=== PATIENT | female | born 1975 | race Caucasian/White ===

== ENCOUNTER → 2019-09-03 10:46 | Outpatient (BNVA) | payer MEDICAID, SELFPAY | PROVIDERS: PCP Nurse Practitioner Family; Visit Provider Nurse Practitioner Family | DX: R06.02 Shortness of breath (principal); I73.00 Raynaud's syndrome without gangrene; R39.9 Unspecified symptoms and signs involving the genitourinary system; F17.200 Nicotine dependence, unspecified, uncomplicated; R09.89 Other specified symptoms and signs involving the circulatory and respiratory systems; L98.491 Non-pressure chronic ulcer of skin of other sites limited to breakdown of skin; G62.9 Polyneuropathy, unspecified; I45.10 Unspecified right bundle-branch block | CPT/HCPCS: 71046; 80053; 80061; 81003; 84443; 85025; 85651; 86140 ==

== ENCOUNTER 2019-09-08 09:13 | Outpatient (CLI) | payer MEDICAID, SELFPAY ==
--- NOTE | 2019-09-08 09:30 | USCV_ITS ---
Sharon Martinez Age: 44 Gender: F : 1975 Exam Date: 09/08/2019 09:42 Ordering Phys: Gladis Arce IRRIGATION EQUIPMENT INSTALLER-C Technologist: Conchita Soto Exam Location: [facility] – [place], [place] Indication: SWELLING OF BOTH HANDS HISTORY: Upper extremity swelling. PROCEDURES: Venous duplex imaging was performed in bilateral upper extremities. The following venous structures were evaluated: internal jugular vein, subclavian vein, axillary vein, and brachial veins. In addition, the basilic vein, cephalic vein, radial vein, and ulnar vein. Serial compression, augmentation maneuvers, and spectral Doppler flow evaluation were performed. FINDINGS: Normal 2-D, color Doppler and phasicity noted in the bilateral upper extremity venous system extending from the internal jugular veins through the main forearms. No thrombosis or occlusion noted. CONCLUSIONS No evidence of thrombus of the bilateral upper extremity veins. Fausto Young MD (Electronically Signed) Final Date: 08 September 2019 13:48 S
== END 2019-09-08 09:14 | disposition home or self-care (01) ==
LOC: RAD 09:15
PROVIDERS: PCP Nurse Practitioner Family; Visit Provider Nurse Practitioner Family
DX: M79.89 Other specified soft tissue disorders (principal)
CPT/HCPCS: 93970

== ENCOUNTER 2019-09-13 13:03 | Outpatient (RCR) | payer MEDICAID, SELFPAY | END 2019-10-09 23:59 | disposition home or self-care (01) | LOC: WOUND 13:03 | PROVIDERS: PCP Nurse Practitioner Family; Visit Provider Nurse Practitioner Family | DX: Z09 Encounter for follow-up examination after completed treatment for conditions other than malignant neoplasm (principal) | CPT/HCPCS: 99204; 99214; G0463 ==

== ENCOUNTER 2019-09-15 06:55 | Outpatient (CLI) | payer MEDICAID, SELFPAY ==
--- NOTE | 2019-09-15 07:15 | USCV_ITS ---
Saraidena Sharon Age: 44 Gender: F : 1975 Exam Date: 09/15/2019 07:08 Ordering Phys: Gladis Arce PATROL POLICE SERGEANT-Samuel Technologist: Beti Grant [place] [facility] [place]ication: DECREASED CIRCULATION Risk Factors: Previous Vascular Surgery: Right BP: 141.00 / 98.00 Left BP: 134.00 / 89.00 RIGHT LEFT PSV PSV (cm/s) (cm/s) Waveform Waveform Triphasic 90.6 Subclavian Proximal 106.9 Triphasic Triphasic 58.5 Subclavian Distal 49.7 Triphasic Triphasic 78.0 Axillary 73.1 Triphasic Triphasic 73.5 Brachial Proximal 91.6 Triphasic Triphasic 85.5 Brachial Mid 126.0 Triphasic Triphasic 82.5 Brachial at AC 130.4 Triphasic Triphasic 63.0 Radial Proximal 75.0 Triphasic Biphasic 76.7 Radial Mid 64.5 Triphasic Biphasic 62.9 Radial at Wrist 67.5 Biphasic Biphasic 34.0 Ulnar Proximal 73.5 Biphasic Biphasic 45.3 Ulnar Mid 60.0 Biphasic Biphasic 51.6 Ulnar at Wrist 60.0 Biphasic FINDINGS Patent upper extremity arteries bilaterally Normal/near normal Doppler waveforms bilaterally Normal Doppler flow velocities CONCLUSIONS No significant arterial obstruction, based on the above findings Dr Kia Maldonado MD [facility] (Electronically Signed) Final Date: 15 September 2019 15:22 S
== END 2019-09-15 06:56 | disposition home or self-care (01) ==
LOC: RAD 06:59
PROVIDERS: PCP Nurse Practitioner Family; Visit Provider Nurse Practitioner Family
DX: M79.89 Other specified soft tissue disorders (principal)
CPT/HCPCS: 93930

== ENCOUNTER 2019-10-14 07:09 | Outpatient (CLI) | payer MEDICAID, SELFPAY ==
[2019-10-14 07:18] VITALS: BMI 24.3
--- NOTE | 2019-10-14 07:29 | ECG_ITS ---
NAME OF STUDY: LEXISCAN SESTAMIBI STRESS TEST INDICATION: Atypical Chest Pain; Shortness of Breath PROCEDURE: At the baseline, the EKG revealed normal sinus rhythm with some nonspecific T wave changes.. The baseline blood pressure was 133/96 mm Hg with a heart rate of 89 beats/min. Lexiscan was infused over a period of 20 seconds. A total of 0.4 milligrams of Lexiscan was infused. The stress phase was continued for a total of 5 minutes. Heart rate at the end of the stress phase was 90 with a blood pressure 123/95. The EKG at the peak infusion revealed no significant changes. Sestamibi was injected 20 seconds after the Lexiscan infusion. Blood pressure at the end of the recovery phase was 137/99 with a heart rate of 88 per minute. CONCLUSION: 1. No significant EKG changes with the LexiScan infusion 2. No LexiScan induced chest pain or cardiac arrhythmia 3. Normal blood pressure and heart rate response 4. Sestamibi/sestamibi perfusion scan pending; see separate report. Electronically Signed On 10-15-2019 15:52:16 ASSOCIATE ACCOUNTANT by Kia Maldonado M.D. [email or web address]
--- NOTE | 2019-10-14 07:29 | NMCV_ITS ---
NM marilin perf SPECT r/s* [id number] Sharon Martinez Age: 44 Gender: F : 1975 Exam Date: 10/14/2019 08:09 Ordering Phys: Kia Maldonado MD ([email or web address]) Technologist: MARYELLEN Cardenas Exam Location: [facility] Indications: Chest pain STRESS TEST Please see separate stress test report in [facility] for full findings IMAGE PROTOCOL Rest/Stress 1 Lexiscan Day Radiopharmaceutical Dose (mCi) Administration Site Administered by Rest: Tc-99m 10.8 IV MARYELLEN Cardenas Sestamibi Stress:Tc-99m 32.7 IV MARYELLEN Cardenas Sestamidarvin Rest: 14-Oct-2019 60 Discovery 630 Stress: 14-Oct-2019 45 Discovery 630 0.4mg Lexiscan. Images obtained in supine and prone position. SPECT RESULTS Technical Quality: Good Raw Data Analysis: Normal Image Corrections: No attenuation or motion correction applied Summed Stress Score: 0 Summed Rest Score: 0 Summed Difference Score: 0 PERFUSION FINDINGS Uniform myocardial tracer uptake. No significant perfusion normalities. FUNCTIONAL RESULTS (calculated via Gated SPECT) Stress Image LV EF (%): 68 Stress EDV (mL):38 TID: 0.96 Stress ESV (mL):12 FUNCTIONAL FINDINGS: Segmental wall motion analysis revealing no gross wall motion normalities IMPRESSIONS 1. Unremarkable myocardial perfusion imaging. 2. LV wall motion analysis revealing no gross wall motion normalities. 3. Normal LV ejection fraction of 68%. 4. Normal LV volume No significant coronary ischemia, based on the above findings Dr Kia Maldonado MD [facility] (Electronically Signed) Final Date: 14 October 2019 13:58 S
[2019-10-14] MEDS: regadenoson 0.4 Mg/5 ml Syringe IVP (09:07)
--- NOTE | 2019-10-14 09:08 | SUR.PREOP ---
Patient reports no pain or discomfort prior to the start of the procedure.
[2019-10-14 09:17] VITALS: BP 130/89; PULSE 85
== END 2019-10-14 07:10 | disposition home or self-care (01) ==
PROVIDERS: PCP Nurse Practitioner Family; Visit Provider Internal Medicine Cardiovascular Disease
DX: R07.89 Other chest pain (principal); R06.02 Shortness of breath
CPT/HCPCS: 78452; 93017; A9500; J2785

== ENCOUNTER 2019-10-15 15:20 | Outpatient (RCR) | payer MEDICAID, SELFPAY ==
--- NOTE | 2019-10-15 | USCV_ITS ---
Sharon Martinez Age: 44 Gender: F : 1975 Exam Date: 10/15/2019 15:35 Ordering Phys: Kia Maldonado MD ([email or web address]) Technologist: Pedro Pablo Jimenez Exam Location: [facility] – [place] Indication: SOB BP: 134 / 85 HR: 105 Rhythm: Sinus Technical Quality: Technically difficult study MEASUREMENTS (Male / Female) Normal Values 2D ECHO LVOT Diameter 1.6 cm LV Ejection Fraction MOD 2C 56.7 % LV Ejection Fraction 2C AL 58.8 % LA Diameter 3.2 cm LA Width 3.4 cm LA Height 5.3 cm RA Width 4.6 cm RA Height 6.0 cm Aorta at Sinotubular Diameter 2.8 cm M-MODE LV Diastolic Diameter MM 3.1 cm 4.2 - 5.9 / 3.9 - 5.3 cm LV Systolic Diameter MM 1.7 cm LV Ejection Fraction MM Teich 76.1 % IVS Diastolic Thickness MM 2.3 cm 0.6 - 1.0 / 0.6 - 0.9 cm IVS Systolic Thickness MM 2.5 cm LVPW Diastolic Thickness MM 1.6 cm 0.6 - 1.0 / 0.6 - 0.9 cm LVPW Systolic Thickness MM 1.9 cm RV Diastolic Diameter MM 2.4 cm Aortic Annulus Diameter 3.1 cm LA Ao Ratio MM 1.0 MV E Point Septal Separation 0.7 cm DOPPLER AV Peak Velocity 119.0 cm/s LVOT Peak Velocity 100.0 cm/s AV Area Cont Eq vti 1.8 cm squared AV Area Cont Eq pk 1.8 cm squared MV Area PHT 5.0 cm squared Mitral E to A Ratio 0.5 MV E' Velocity 50.0 cm/s Mitral E to LV E' Septal Ratio 9.3 TR Peak Velocity 373.0 cm/s TR Peak Gradient 55.7 mmHg TV Peak E Velocity 117.0 cm/s Right Atrial Pressure 3.0 mmHg Pulmonary Artery Systolic Pressu 58.7 mmHg PV Peak Velocity 79.0 cm/s FINDINGS Left Ventricle Normal left ventricular size and systolic function, EF 55 %. Moderate concentric left ankle hypertrophy. No gross wall motion normalities noted.Grade I/IV diastolic dysfunction (abnormal relaxation filling pattern), normal to mildly elevated filling pressures. Right Ventricle Mildly increased right ventricular size. Mildly decreased right ventricular systolic function. Right Atrium Mildly increased right atrial size. Left Atrium The left atrium is normal in size. Mitral Valve Structurally normal mitral valve without significant stenosis or prolapse. There is no mitral regurgitation. Aortic Valve Mild aortic valve regurgitation. Tricuspid Valve Mild tricuspid valve regurgitation. Pulmonic Valve Trace to mild pulmonary valve regurgitation. Pericardium Normal pericardium without effusion. Aorta Normal aortic annulus size. CONCLUSIONS Normal left ventricular size and systolic function, EF 55 %. Moderate concentric left ankle hypertrophy. No gross wall motion normalities noted.Grade I/IV diastolic dysfunction (abnormal relaxation filling pattern), normal to mildly elevated filling pressures. Mild aortic valve regurgitation. Mild tricuspid valve regurgitation. Trace to mild pulmonary valve regurgitation. Estimated pulmonary artery peak systolic pressure of 59 mmHg There is no pericardial effusion. There are no intracardiac masses. There are no prior echocardiogram studies to compare. Dr Kia Maldonado MD [facility] (Electronically Signed) Final Date: 18 October 2019 22:56 S
== END 2019-11-09 23:59 | disposition home or self-care (01) ==
LOC: RAD 15:20
PROVIDERS: PCP Nurse Practitioner Family; Visit Provider Internal Medicine Cardiovascular Disease
DX: I08.2 Rheumatic disorders of both aortic and tricuspid valves (principal)
CPT/HCPCS: 93306

== ENCOUNTER → 2019-12-17 09:33 | Outpatient (BNVA) | payer MEDICAID, SELFPAY | PROVIDERS: PCP Nurse Practitioner Family; Visit Provider Nurse Practitioner | DX: I73.00 Raynaud's syndrome without gangrene (principal); I10 Essential (primary) hypertension; F41.1 Generalized anxiety disorder; M20.091 Other deformity of right finger(s); R22.32 Localized swelling, mass and lump, left upper limb | CPT/HCPCS: 73130; 82607; 85025 ==

== ENCOUNTER 2020-05-11 18:42 | Emergency (ER) | payer MEDICAID, SELFPAY ==
[2020-05-11 19:08] VITALS: BP 165/95; PULSE 101; RESP 18; TEMP 36.3; O2SAT 99; BMI 21.6
[2020-05-11 19:20] LABS: Basophils % 0.6 %; Eosinophils # 0.2 10^3/uL (0.0-0.8); Eosinophils % 3.6 %; Hematocrit 46.4 % (37.0-47.0); Hemoglobin 15.1 g/dL (11.5-15.3); Lymphocytes # 1.7 10^3/uL (0.8-4.8); Lymphocytes % 25.5 %; Mean Corpuscular HGB Conc 32.5 g/dL (30.0-36.0); Mean Corpuscular Hemoglobin 30.8 pg (28.0-34.0); Mean Corpuscular Volume 94.7 fL (81-99); Mean Platelet Volume 11.9 fL (7.4-10.4); Monocytes # 0.4 10^3/uL (0.2-0.9); Monocytes % 6.6 %; Neutrophils # 4.11 10^3/uL (1.8-7.7); Neutrophils % 63.5 %; Nucleated Red Blood Cells % 0 %; Platelet Count 119 10^3/cmm (130-400); Red Cell Distribution Width 13.3 % (12.1-15.1); White Blood Count 6.5 10^3/uL (4.0-10.0)
--- NOTE | 2020-05-11 19:22 | ED_ITS ---
HPI - Abdominal Pain General: Chief Complaint: Abdominal Pain Stated Complaint: abd pain Time Seen by Provider: 05/11/20 19:14 Source: patient Mode of arrival: ambulatory Limitations: no limitations History of Present Illness: HPI narrative: 45-year-old female who states she been having lower abdominal pain for last 4 days. States it is worsened and gradually went to her right lower quadrant. States pain is currently 6 out of 10. She had some slight nausea. Denies any worsening improving factors. Denies any vomiting. Denies any fevers. Associated Symptoms: Denies chills, dysuria and fever(s) Review of Systems Const: Denies: fever(s), chills, body aches or change in appetite Eyes: Denies: blurry vision or eye discomfort ENMT: Denies: throat pain or dental pain Card: Denies: chest pain Resp: Denies: dyspnea GI: Reports: abdominal pain : Denies: dysuria Musc: Denies: neck pain or back pain Skin/Breast: Denies: rash Neuro: Denies: headache(s) Psych: Denies: depression Peng/Lymph: Denies: easy bruising All/Imm: Denies: urticaria PFSH ED PFSH: Medical History Activity of daily living alteration Atypical chest pain TERRELL (dyspnea on exertion) Essential hypertension Incomplete right bundle branch block Peripheral neuropathy Pulmonary hypertension Raynauds disease Smoker Smoking addiction Ulceration localized to fingertip Surgical History Hx of tubal ligation Family History Other Cancer Social History Smoking and tobacco status: current every day smoker cigarettes Packs smoked per day: 1 Second hand smoke exposure: Yes Smoking risk assessment/counseling performed?: Yes Alcohol intake: former Desire information about alcohol rehabilitation?: No Counseling given: No Desire information about substance/drug rehabilitation?: No Counseling given: No Adopted: No Caregiver/support person: No Lives independently: Yes Household members: none Marital status: Number of children: 2 service: No Current occupational status: unemployed History of recent travel: No Current gender identity: Female Female Reproductive History: Para: 2 Physical Exam Const: COMMON NORMALS: no acute distress, patient oriented x3 and healthy appearing HENMT: COMMON NORMALS: normocephalic and atraumatic HEAD & SCALP: normocephalic and atraumatic Eye: COMMON NORMALS: Equal, round and reactive pupils present and EOMs intact bilaterally PUPIL: Yes Equal, round and reactive pupils present Neck/C-Spine: COMMON NORMALS: full ROM and supple Chest: COMMONS NORMALS: normal inspection of the chest and normal palpation of entire chest wall Resp: COMMON NORMALS: normal respiratory effort, No retractions, No use of accessory muscles and clear to auscultation bilaterally AUSCULTATION: clear to auscultation bilaterally Cardio: COMMON NORMALS: regular rate, regular rhythm and No murmurs present (Cardio) RATE: regular rate RHYTHM: regular rhythm GI: COMMON NORMALS: Normal to inspection, nondistended, normoactive bowel sounds present, Soft to palpation, non-tender and no masses PALPATION: Yes Soft to palpation Extremity: COMMON NORMALS: normal to inspection and full ROM Neuro: COMMON NORMALS: patient oriented x3, moves all extremities and no focal motor deficits Psych: COMMON NORMALS: mental status grossly normal, Normal thought process present and cooperative THOUGHT PROCESS: Normal thought process present Skin: COMMON NORMALS: no rashes or lesions noted and no wounds GENERAL SKIN EXAM: no rashes or lesions noted Course Vital Signs: Vital signs: Vital Signs Temperature 97.3 F L 05/11/20 19:08 Pulse Rate 101 H 05/11/20 19:08 Respiratory Rate 18 05/11/20 19:38 Blood Pressure 165/95 05/11/20 19:08 Pulse Oximetry 99 05/11/20 19:08 MDM - Abdominal Pain MDM Narrative: Medical decision making narrative: Patient presents here with lower abdominal pain. CT showed a tubular structure that is likely hydrosalpinx. Patient pain is resolved and exam here is benign. Patient does have trichomonas in her urine. States she does have slight discharge. She has no signs of PID. We will give her Rocephin along with azithromycin and prescribe her Flagyl. She is to return if worsening. She understands agrees to plan. Lab Data: Labs: Lab Results 05/11/20 05/11/20 05/11/20 Range/Units 19:05 19:05 19:05 WBC 6.5 (4.0-10.0) 10^3/ uL RBC 4.90 (4.1-5.3) 10^6/u L Hgb 15.1 (11.5-15.3) g/dL Hct 46.4 (37.0-47.0) % MCV 94.7 (81-99) fL MCH 30.8 (28.0-34.0) pg MCHC 32.5 (30.0-36.0) g/dL RDW 13.3 (12.1-15.1) % Plt Count 119 L (130-400) 10^3/c mm MPV 11.9 H (7.4-10.4) fL Neut % (Auto) 63.5 % Lymph % (Auto) 25.5 % [place] % (Auto) 6.6 % Eos % (Auto) 3.6 % Baso % (Auto) 0.6 % Neut # (Auto) 4.11 (1.8-7.7) 10^3/u L Lymph # (Auto) 1.7 (0.8-4.8) 10^3/u L [place] # (Auto) 0.4 (0.2-0.9) 10^3/u L Eos # (Auto) 0.2 (0.0-0.8) 10^3/u L Baso # (Auto) 0.0 (0.0-0.1) 10^3/u L Nucleated RBC % (a uto) 0 % Nucleated RBCs # 0.0 /100WBC Sodium 137 (136-145) mmol/L Potassium 4.4 (3.5-5.1) mmol/L Chloride 103 (98-107) mmol/L Carbon Dioxide 25 (22-29) mmol/L Anion Gap 13.4 (5-19) BUN 13 (6-20) mg/dL Creatinine 0.9 (0.5-0.9) mg/dL GFR Calculation 67.1 L (90-130) mL/min Glucose 89 (65-115) mg/dL Calculated Osmolal ity 284 L (285-295) mOsm/k g Calcium 10.0 (8.5-10.5) mg/dL Total Bilirubin 0.3 (0.15-1.2) mg/dL AST 25 (0-32) U/L ALT 24 (0-33) U/L Alkaline Phosphata se 133 H (35-105) IU/L Total Protein 7.1 (6.6-8.7) g/dL Albumin 3.8 (3.5-5.2) g/dL Globulin 3.3 (1.3-4.6) g/dL Lipase 22 (13-60) U/L HCG, Qual Negative (Negative) Urine Color (Yellow) Urine Appearance (CLEAR) Urine pH (5-7) Ur Specific Gravit y (1.005-1.030) Urine Protein (Negative) Urine Glucose (UA) (Normal) Urine Ketones (Negative) Urine Blood (Negative) Urine Nitrate (Negative) Urine Bilirubin (Negative) Urine Urobilinogen (Negative) mg/dL Ur Leukocyte Reshma ase (Negative) Urine RBC (0-2) /hpf Urine WBC (0-5) /hpf Ur Squamous Epith Cells (0-5) /hpf Amorphous Sediment Urine Bacteria (NONE) /hpf Urine Trichomonas /hpf 05/11/20 Range/Units 20:38 WBC (4.0-10.0) 10^3/ uL RBC (4.1-5.3) 10^6/u L Hgb (11.5-15.3) g/dL Hct (37.0-47.0) % MCV (81-99) fL MCH (28.0-34.0) pg MCHC (30.0-36.0) g/dL RDW (12.1-15.1) % Plt Count (130-400) 10^3/c mm MPV (7.4-10.4) fL Neut % (Auto) % Lymph % (Auto) % [place] % (Auto) % Eos % (Auto) % Baso % (Auto) % Neut # (Auto) (1.8-7.7) 10^3/u L Lymph # (Auto) (0.8-4.8) 10^3/u L [place] # (Auto) (0.2-0.9) 10^3/u L Eos # (Auto) (0.0-0.8) 10^3/u L Baso # (Auto) (0.0-0.1) 10^3/u L Nucleated RBC % (a uto) % Nucleated RBCs # /100WBC Sodium (136-145) mmol/L Potassium (3.5-5.1) mmol/L Chloride (98-107) mmol/L Carbon Dioxide (22-29) mmol/L Anion Gap (5-19) BUN (6-20) mg/dL Creatinine (0.5-0.9) mg/dL GFR Calculation (90-130) mL/min Glucose (65-115) mg/dL Calculated Osmolal ity (285-295) mOsm/k g Calcium (8.5-10.5) mg/dL Total Bilirubin (0.15-1.2) mg/dL AST (0-32) U/L ALT (0-33) U/L Alkaline Phosphata se (35-105) IU/L Total Protein (6.6-8.7) g/dL Albumin (3.5-5.2) g/dL Globulin (1.3-4.6) g/dL Lipase (13-60) U/L HCG, Qual (Negative) Urine Color Yellow (Yellow) Urine Appearance Hazy A (CLEAR) Urine pH 5 (5-7) Ur Specific Gravit y 1.015 (1.005-1.030) Urine Protein Neg (Negative) Urine Glucose (UA) Norm (Normal) Urine Ketones Negative (Negative) Urine Blood 2+ H (Negative) Urine Nitrate Negative (Negative) Urine Bilirubin Neg (Negative) Urine Urobilinogen Norm (Negative) mg/dL Ur Leukocyte Reshma ase Trace H (Negative) Urine RBC 0-4 H (0-2) /hpf Urine WBC 5-10 H (0-5) /hpf Ur Squamous Epith Cells 25-40 H (0-5) /hpf Amorphous Sediment Not Reportable Urine Bacteria 1+ H (NONE) /hpf Urine Trichomonas 3+ H /hpf Imaging Data ^: CT Abd/Pel: Radiologist's impression: [address] [address] [address] Scan Report Signed Patient: Sharon Martinez Unit #: [id number] : 1975 Age/Sex: 45 / F ADM Date: 05/11/20 Loc: ER Room/Bed: Attending Dr: Ordering Provider/Ordering MD: Adia Fuentes MD Date of Service: 05/11/20 Procedure(s): CT abdomen pelvis w con* [id number] Accession Number(s): [id number] Report Number: [id number] PROCEDURE INFORMATION: Exam: CT Abdomen And Pelvis With Contrast Exam date and time: 05/11/2020 7:43 PM Age: 45 years old Clinical indication: Abdominal pain; Acute; Prior surgery; Surgery date: 6+ months; Surgery type: Choley tubal; Additional info: Abd pain TECHNIQUE: Imaging protocol: Computed tomography of the abdomen and pelvis with intravenous contrast. Radiation optimization: All CT scans at this facility use at least one of these dose optimization techniques: automated exposure control; mA and/or kV adjustment per patient size (includes targeted exams where dose is matched to clinical indication); or iterative reconstruction. Contrast material: OMNI; Contrast volume: 95 ml; Contrast route: INTRAVENOUS (IV); COMPARISON: No relevant prior studies available. RADIATION DOSE METRICS: Total DLP (mGy-cm): 404.14 FINDINGS: Lungs: The lung bases are clear. Heart: Asymmetric pericardial effusion only collects anteriorly measuring up to 13 mm. The heart size appears normal. Liver: Normal. No mass. Gallbladder and bile ducts: The gallbladder is surgically absent. Pancreas: Normal. No ductal dilation. Spleen: Normal. No splenomegaly. Adrenals: Normal. No mass. Kidneys and ureters: Incidental 5 mm right renal cyst. Follow-up is not recommended. Stomach and bowel: Slightly increased fluid within nondilated small bowel measuring up to 2.7 cm. The colon is unremarkable. Appendix: The appendix is well seen and is normal. The impression. Normal appendix. Intraperitoneal space: There is no free fluid. Vasculature: Unremarkable. No abdominal aortic aneurysm. Lymph nodes: Unremarkable. No enlarged lymph nodes. Urinary bladder: Unremarkable as visualized. Reproductive: There is a 1.2 cm curved, tubular structure with wall enhancement adjacent to the right ovary. This might represent a dilated fallopian tube. The ovaries are not enlarged. The uterus is unremarkable. Bones/joints: Unremarkable. No acute fracture. Soft tissues: Unremarkable. CT/CT abdomen pelvis w con* [id number] IMPRESSION: 1. Right periovarian tubular structure. This is probably hydrosalpinx. Differential would be an inflamed Meckel's diverticulum 2. Subtle small bowel changes suggesting enteritis. 3. Pericardial effusion COMMENTS: Consistent with the [employer]'s Incidental Findings Committee white paper (J Am Cristobal Radiol 2018): Any incidental renal lesion less than 1.0 cm or classified as too small to characterize, or any incidental cystic renal lesion characterized as simple-appearing, is likely benign. No follow-up imaging is recommended for these lesions per consensus recommendations based on imaging criteria. Discharge Plan Discharge Patient Disposition: Home Clinical Impression: Trichimoniasis Abdominal pain Qualifiers: Abdominal location: right lower quadrant Qualified Code(s): R10.31 - Right lower quadrant pain Condition: Stable Prescriptions: [place] 5-325 mg tablet 1 tab PO Q6H PRN (Reason: pain) Qty: 14 RF: 0 ondansetron 4 mg tablet,disintegrating 4 mg PO Q6H PRN (Reason: nausea and vomiting) Qty: 14 RF: 0 Flagyl 500 mg tablet 500 mg PO Q8H 7 Days Qty: 21 RF: 0 No Action isosorbide mononitrate 30 mg tablet extended release 24 hr 30 mg PO .2 times day Qty: 60 RF: 0 zonisamide 100 mg capsule 100 mg PO Q12H Qty: 60 RF: 2 fluoxetine [Prozac] 20 mg capsule 20 mg PO BID Qty: 60 RF: 2 mupirocin 2 % ointment 1 applic TOPICAL TID Qty: 22 RF: 2 lidocaine-prilocaine 2.5-2.5 % cream 0.5 gm topical .every 12 hours Qty: 30 RF: 1 nifedipine [Procardia XL] 90 mg tablet extended release 24hr 90 mg PO DAILY Qty: 30 RF: 2 gabapentin 300 mg capsule 300 mg PO TID RF: 0 Discharge Orders: Discharge Order (Routine); Ordered 05/11/20 Ordered By: Adia Fuentes Referrals: [facility] [Other] Gladis Arce FNP-C [Primary Care Provider] - Prema Mena MD [Physician] - 1-3 days Discharge Diet: Advance as tolerated Discharge Activity: Resume usual activity Patient Instructions: Trichomoniasis (ED), Abdominal Pain (ED) Coding Level of Care Code ED Felling Machine Operator for Chg Fwd Exam Comprehensive
[2020-05-11 19:28] LABS: Alanine Aminotransferase 24 U/L (0-33); Albumin Level 3.8 g/dL (3.5-5.2); Alkaline Phosphatase 133 IU/L (35-105); Anion Gap 13.4 (5-19); Aspartate Amino Transferase 25 U/L (0-32); Blood Urea Nitrogen 13 mg/dL (6-20); Carbon Dioxide 25 mmol/L (22-29); Chloride 103 mmol/L (98-107); Globulin 3.3 g/dL (1.3-4.6); Glomerular Filtration Rate 67.1 mL/min (90-130); Glucose 89 mg/dL (65-115); Lipase 22 U/L (13-60); Osmolality Calculated 284 mOsm/kg (285-295); Potassium 4.4 mmol/L (3.5-5.1); Sodium 137 mmol/L (136-145); Total Bilirubin 0.3 mg/dL (0.15-1.2); Total Protein 7.1 g/dL (6.6-8.7)
[2020-05-11 19:30] LABS: HCG, Serum Qual Negative (Negative)
[2020-05-11] MEDS: sodium chloride 0.9% 1,000 ML 999 ML IV (19:36)
[2020-05-11 19:38] VITALS: RESP 18
[2020-05-11] MEDS: morphine 4 mg/mL SDV 1 mL IVP (19:38)
[2020-05-11] MEDS: ondansetron 2 mg/ML SDV 2 mL 4 MG IVP (19:38)
[2020-05-11] MEDS: iohexol 300 mg/mL 100 mL Btl IV (19:51)
--- NOTE | 2020-05-11 20:26 | US_ITS ---
WS: [id number] ULTRASOUND PELVIS TECHNIQUE: Transvaginal. CLINICAL INFORMATION: rlq pain : No. COMPARISON: None. FINDINGS: Uterus Orientation: Anteverted. Size: 7.9 x 4.2 x 5.1 cm Masses: None. Cervix: Normal. Endometrium: Normal. Endometrium thickness: 5.7 mm. Adnexa: Difficult to visualize left ovary. Small right ovarian cyst measuring 1.4 x 0.7 cm Right ovary size: 2.1 x 1.4 x 2.3 cm. Left ovary size: 3.0 x 1.9 x 2.2 cm. Free fluid: None. Other findings: None. US/US transvaginal [id number] IMPRESSION: 1. Uterus is normal in appearance with normal endometrium measuring 5.7 mm. 2. Normal adnexa. 3. Small cyst right ovary measuring 1.4 x 0.7 cm 4. No free fluid in the cul-de-sac.
[2020-05-11 21:15] LABS: Add Urine Microscopic? YES; Bilirubin Urine Neg (Negative); Blood Urine 2+ (Negative); Glucose Urine UA Norm (Normal); Ketones Urine Negative (Negative); Leukocyte Esterase Urine Trace (Negative); Nitrate Urine Negative (Negative); Protein Urine Neg (Negative); Specific Gravity, Urine 1.015 (1.005-1.030); Urine Appearance Hazy (CLEAR); Urine Color Yellow (Yellow); Urobilinogen Urine Norm (Negative); pH Urine 5 (5-7)
[2020-05-11 21:18] LABS: Bacteria Urine 1+ /hpf; RBC Urine 0-4 /hpf (0-2); Squamous Epithelial Cell Urine 25-40 /hpf (0-5)
[2020-05-11 21:19] LABS: Add Urine Culture? No; Trichomonas Urine 3+ /hpf
[2020-05-11] MEDS: azithromycin 250 mg Tablet 1000 MG PO (21:37)
[2020-05-11] MEDS: cefTRIAXone 1,000 mg SDV 250 MG IM (21:38)
--- NOTE | 2020-05-12 08:55 | DCPLANNER ---
business change manager had message to schedule a follow up appointment for patient with [facility]. business change manager called [facility], spoke with [employer], gave clinic patients information. business change manager was told that patients information would be printed and reviewed. Clinic will call patient with appointment information.
--- NOTE | 2020-05-16 08:09 | DCPLANNER ---
Patient had a follow up appointment scheduled for 05.15.20 with [facility] - patient did attend appointment.
== END 2020-05-11 21:47 | disposition home or self-care (01) ==
PROVIDERS: Emergency Provider Emergency Medicine; PCP Nurse Practitioner Family
DX: A59.9 Trichomoniasis, unspecified (principal); R10.31 Right lower quadrant pain; I10 Essential (primary) hypertension; F17.210 Nicotine dependence, cigarettes, uncomplicated
CPT/HCPCS: 12345; 36415; 74177; 76830; 80053; 81001; 83690; 84703; 85025; 96361; 96372; 96374; 96375; 99282; 99283; J0696; J2270; J2405; J7030; Q0144; Q9967

== ENCOUNTER → 2020-05-15 15:53 | Outpatient (BNVA) | payer MEDICAID, SELFPAY | PROVIDERS: PCP Nurse Practitioner Family; Visit Provider Obstetrics & Gynecology | DX: Z12.4 Encounter for screening for malignant neoplasm of cervix (principal); R10.2 Pelvic and perineal pain | CPT/HCPCS: 88175 ==

== ENCOUNTER 2020-06-26 13:50 | Outpatient (CLI) | payer MEDICAID, SELFPAY ==
--- NOTE | 2020-06-26 13:00 | MM_ITS ---
WS: [id number] BILATERAL SCREENING DIGITAL MAMMOGRAM WITH CAD HISTORY: Breast Cancer Screening COMPARISON: None available. Bilateral CC and MLO views submitted. Computer aided detection analyzed. Breast composition: There are scattered areas of fibroglandular density. No suspicious masses, microc alcifications or architectural distortion. Benign calcifications in each breast. MM/[place] [id number] IMPRESSION: BI-RADS: 2-Benign FOLLOW UP: 1 Year Follow-up
== END 2020-06-26 13:51 | disposition home or self-care (01) ==
LOC: RADSHAW 13:53
PROVIDERS: PCP Nurse Practitioner; Visit Provider Obstetrics & Gynecology
DX: Z12.31 Encounter for screening mammogram for malignant neoplasm of breast (principal)
CPT/HCPCS: 77067

== ENCOUNTER 2020-09-05 08:27 | Outpatient (CLI) | payer MEDICAID, SELFPAY | END 2020-09-05 08:28 | disposition home or self-care (01) | LOC: WOUND 08:28 | PROVIDERS: PCP Nurse Practitioner; Visit Provider Thoracic Surgery (Cardiothoracic Vascular Surgery) | DX: L98.492 Non-pressure chronic ulcer of skin of other sites with fat layer exposed (principal); I73.00 Raynaud's syndrome without gangrene | CPT/HCPCS: 99212 ==

== ENCOUNTER → 2020-09-08 10:02 | Outpatient (BNVA) | payer MEDICAID, SELFPAY | PROVIDERS: PCP Nurse Practitioner; Visit Provider Internal Medicine | DX: I73.00 Raynaud's syndrome without gangrene (principal); I10 Essential (primary) hypertension; Z11.59 Encounter for screening for other viral diseases; Z11.1 Encounter for screening for respiratory tuberculosis; L98.499 Non-pressure chronic ulcer of skin of other sites with unspecified severity; L03.011 Cellulitis of right finger; F17.210 Nicotine dependence, cigarettes, uncomplicated | CPT/HCPCS: 99204 ==

== ENCOUNTER 2020-09-12 09:12 | Outpatient (CLI) | payer MEDICARE, MEDICAID, SELFPAY | END 2020-09-12 09:13 | disposition home or self-care (01) | LOC: WOUND 09:13 | PROVIDERS: PCP Nurse Practitioner; Visit Provider Thoracic Surgery (Cardiothoracic Vascular Surgery) | DX: L98.492 Non-pressure chronic ulcer of skin of other sites with fat layer exposed (principal) | CPT/HCPCS: 99214 ==

== ENCOUNTER 2020-09-15 13:20 | Outpatient (CLI) | payer MEDICARE, MEDICAID, SELFPAY ==
[2020-09-15 14:30] LABS: Add Urine Microscopic? NO
[2020-09-15 15:03] LABS: Alanine Aminotransferase 17 U/L (0-33); Alkaline Phosphatase 164 IU/L (35-105); Anion Gap 13.3 (5-19); Aspartate Amino Transferase 22 U/L (0-32); Blood Urea Nitrogen 28 mg/dL (6-20); Calcium 9.6 mg/dL (8.5-10.5); Carbon Dioxide 24 mmol/L (22-29); Chloride 98 mmol/L (98-107); Globulin 3.3 g/dL (1.3-4.6); Glomerular Filtration Rate 76.9 mL/min (90-130); Glucose 122 mg/dL (65-115); Osmolality Calculated 281 mOsm/kg (285-295); Potassium 3.3 mmol/L (3.5-5.1); Sodium 132 mmol/L (136-145); Total Bilirubin 0.3 mg/dL (0.15-1.2); Total Protein 7.3 g/dL (6.6-8.7)
[2020-09-15 15:17] LABS: Hepatitis B Core AB, Total Non-Reactive (Nonreactive); Hepatitis B Surface Antigen Non-Reactive (Nonreactive); Hepatitis C Virus Antibody Non-Reactive (Nonreactive)
[2020-09-15 15:40] LABS: Complement C3 125 mg/dL (90-180); Thyroid Stimulating Hormone 5.25 uIU/mL (0.27-4.20)
[2020-09-15 16:06] LABS: Bilirubin Urine Neg (Negative); Blood Urine Neg (Negative); Glucose Urine UA Norm (Normal); Ketones Urine Negative (Negative); Leukocyte Esterase Urine Negative (Negative); Nitrate Urine Negative (Negative); Protein Urine Neg (Negative); Urine Appearance Clear (CLEAR); Urine Color Yellow (Yellow); Urobilinogen Urine Norm (Negative); pH Urine 5 (5-7)
[2020-09-18 12:08] LABS: COMPLEMENT, TOTAL (CH50) >60 U/mL (31-60)
[2020-09-18 13:43] LABS: Quantiferon Mitogen 9.37 IU/mL; Quantiferon Nil 0.02 IU/mL; Quantiferon Plus TB1 <0.00 IU/mL; Quantiferon Plus TB2 <0.00 IU/mL; Quantiferon TB Gold NEGATIVE (NEGATIVE)
[2020-09-18 14:42] LABS: CENTROMERE B ANTIBODY <1.0 NEG AI (<1.0 NEG); COMPLEMENT COMPONENT C3C 140 mg/dL (83-193); COMPLEMENT COMPONENT C4C 24 mg/dL (15-57); JO-1 ANTIBODY <1.0 NEG AI (<1.0 NEG); RNP ANTIBODY <1.0 NEG AI (<1.0 NEG); SCL-70 ANTIBODY <1.0 NEG AI (<1.0 NEG); SJOGREN'S ANTIBODY (SS-A) <1.0 NEG AI (<1.0 NEG); SM ANTIBODY <1.0 NEG AI (<1.0 NEG); SS-B <1.0 NEG AI (<1.0 NEG)
[2020-09-19 15:43] LABS: THYROID PEROXIDASE ANTIBODIES 3 IU/mL (<9)
[2020-09-20 14:12] LABS: Cyclic Citrullinated Peptide <16 UNITS
[2020-09-20 15:13] LABS: ANA PATTERN Nuclear, Speckled; ANA SCREEN, IFA POSITIVE (NEGATIVE); Anti-Nuclear AB Pattern #2 Nuclear, Nucleolar
[2020-09-21 03:58] LABS: Cryoglobulins Qualitative None Detected (None Detected)
[2020-09-21 20:53] LABS: ANCA Interp P-ANCA POS (Negative)
[2020-09-21 22:22] LABS: DNA AB (DS) CRITHIDIA,IFA NEGATIVE (NEGATIVE)
== END 2020-09-15 13:21 | disposition home or self-care (01) ==
PROVIDERS: PCP Nurse Practitioner; Visit Provider Internal Medicine
DX: D86.9 Sarcoidosis, unspecified (principal); I73.00 Raynaud's syndrome without gangrene
CPT/HCPCS: 36415; 80053; 81003; 82595; 83516; 84443; 86140; 86160; 86431; 86480; 86704; 86803; 87340

== ENCOUNTER 2020-09-19 07:07 | Outpatient (CLI) | payer MEDICARE, MEDICAID, SELFPAY ==
--- NOTE | 2020-09-19 07:15 | USCV_ITS ---
Sharon Martinez Age: 45 Gender: F : 1975 Exam Date: 09/19/2020 07:03 Ordering Phys: Nicolette Bustos MD Technologist: Mario Mendez Exam Location: [facility] [place] Indication: POLY NEUROPATHY Findings Brachial radial index in the right side is 1.05 Brachial ulnar index on the right side was 1.06 Brachial radial index on the left side was 1.16 Brachial ulnar index on the left side was 1.13 Conclusions Normal brachial -wrist indices bilaterally, suggesting no significant arterial obstruction Dr Kia Maldonado MD [facility] (Electronically Signed) Final Date: 19 September 2020 17:51 S
== END 2020-09-19 07:08 | disposition home or self-care (01) ==
LOC: RAD 07:13
PROVIDERS: PCP Nurse Practitioner; Visit Provider Internal Medicine
DX: G62.9 Polyneuropathy, unspecified (principal); R52 Pain, unspecified; M79.89 Other specified soft tissue disorders
CPT/HCPCS: 93922

== ENCOUNTER 2020-09-19 08:46 | Outpatient (CLI) | payer MEDICARE, MEDICAID, SELFPAY | END 2020-09-19 08:47 | disposition home or self-care (01) | LOC: WOUND 08:47 | PROVIDERS: PCP Nurse Practitioner; Visit Provider Thoracic Surgery (Cardiothoracic Vascular Surgery) | DX: L98.492 Non-pressure chronic ulcer of skin of other sites with fat layer exposed (principal) | CPT/HCPCS: 11042 ==

== ENCOUNTER 2020-10-03 10:20 | Outpatient (CLI) | payer MEDICARE, MEDICAID, SELFPAY | END 2020-10-03 10:21 | disposition home or self-care (01) | PROVIDERS: PCP Nurse Practitioner; Visit Provider Thoracic Surgery (Cardiothoracic Vascular Surgery) | DX: L98.492 Non-pressure chronic ulcer of skin of other sites with fat layer exposed (principal) | CPT/HCPCS: 11042 ==

== ENCOUNTER → 2020-10-05 12:36 | Outpatient (BNVA) | payer MEDICARE, MEDICAID, SELFPAY | PROVIDERS: PCP Nurse Practitioner; Visit Provider Internal Medicine | DX: I73.00 Raynaud's syndrome without gangrene (principal); R76.8 Other specified abnormal immunological findings in serum; R79.89 Other specified abnormal findings of blood chemistry; I73.9 Peripheral vascular disease, unspecified; L98.499 Non-pressure chronic ulcer of skin of other sites with unspecified severity; I27.20 Pulmonary hypertension, unspecified; D69.6 Thrombocytopenia, unspecified; E87.6 Hypokalemia; F17.210 Nicotine dependence, cigarettes, uncomplicated | CPT/HCPCS: 83516; 99214 ==

== ENCOUNTER 2020-10-10 10:24 | Outpatient (CLI) | payer MEDICARE, MEDICAID, SELFPAY | END 2020-10-10 10:25 | disposition home or self-care (01) | LOC: WOUND 10:28 | PROVIDERS: PCP Nurse Practitioner; Visit Provider Thoracic Surgery (Cardiothoracic Vascular Surgery) | DX: I73.00 Raynaud's syndrome without gangrene (principal); L98.492 Non-pressure chronic ulcer of skin of other sites with fat layer exposed | CPT/HCPCS: 11042 ==

== ENCOUNTER → 2020-10-12 12:33 | Outpatient (BNVA) | payer MEDICARE, MEDICAID, SELFPAY | PROVIDERS: PCP Pediatrics; Visit Provider Internal Medicine | DX: I73.00 Raynaud's syndrome without gangrene (principal); I73.9 Peripheral vascular disease, unspecified; L98.499 Non-pressure chronic ulcer of skin of other sites with unspecified severity; Z79.899 Other long term (current) drug therapy; R76.8 Other specified abnormal immunological findings in serum; R06.09 Other forms of dyspnea; I27.20 Pulmonary hypertension, unspecified; R79.89 Other specified abnormal findings of blood chemistry; F17.210 Nicotine dependence, cigarettes, uncomplicated | CPT/HCPCS: 36415; 80053; 81003; 83516; 85025; 86140; 86160; 99214 ==

== ENCOUNTER 2020-10-16 15:21 | Outpatient (CLI) | payer MEDICARE, MEDICAID, SELFPAY ==
--- NOTE | 2020-10-16 15:30 | CT_ITS ---
WS: [id number] CT CHEST WITHOUT INTRAVENOUS CONTRAST HISTORY: R06.09 - Other forms of dyspnea TECHNIQUE: Contiguous 5 mm axial imaging performed on the thorax. Coronal and sagittal reformats are submitted. All CT scans at [facility] use at least one of these dose optimization techniq ues: automated exposure control; mA and/or kV adjustment per patient size (includes targeted exams wh ere dose is matched to clinical indication); or iterative reconstruction. CONTRAST: None DLP: 691.04 mGycm COMPARISON: None available. Lungs and central airway: Marked pulmonary hyperexpansion. Moderate to severe centrilobular emphysema . 5 mm noncalcified nodule RIGHT lower lobe, image 36 of series 3. Benign granuloma RIGHT upper lobe. Pleura: Normal. No pleural effusion. Heart and pericardium: Moderately enlarged heart. There is a moderate-sized pericardial effusion juvencio uring 18 mm. Mediastinum and astrid: Subcentimeter mediastinal and hilar lymph nodes. Vessels: Pulmonary artery is enlarged. Pulmonary artery is larger than the aorta. Chest wall and lower neck: No soft tissue masses. Upper abdomen: Atherosclerosis suprarenal aorta. No adrenal mass. Prior cholecystectomy. Osseous structures: Long curvature thoracic spine with scoliosis to the RIGHT. CT/CT chest wo con [id number] IMPRESSION: 1. Moderate centrilobular emphysema. 2. 5 mm noncalcified RIGHT lower lobe nodule. Recommend follow-up chest CT in 12 months. 3. Cardiomegaly with moderate sized pericardial effusion. Consider follow-up w ith cardiology. 4. Pulmonary hypertension.
== END 2020-10-16 15:22 | disposition home or self-care (01) ==
LOC: RADWPI 15:25
PROVIDERS: PCP Pediatrics; Visit Provider Internal Medicine
DX: R06.09 Other forms of dyspnea (principal)
CPT/HCPCS: 71250

== ENCOUNTER 2020-10-24 10:51 | Outpatient (CLI) | payer MEDICARE, MEDICAID, SELFPAY | END 2020-10-24 10:52 | disposition home or self-care (01) | LOC: WOUND 10:52 | PROVIDERS: PCP Pediatrics; Visit Provider Thoracic Surgery (Cardiothoracic Vascular Surgery) | DX: I73.01 Raynaud's syndrome with gangrene (principal); L98.492 Non-pressure chronic ulcer of skin of other sites with fat layer exposed | CPT/HCPCS: 11042 ==

== ENCOUNTER 2020-11-03 13:56 | Outpatient (CLI) | payer MEDICARE, MEDICAID, SELFPAY ==
--- NOTE | 2020-11-03 14:15 | USCV_ITS ---
Sharon Martinez Age: 45 Gender: F : 1975 Exam Date: 11/03/2020 14:34 Ordering Phys: Kia Maldonado MD ([email or web address]) Technologist: Cony Quiles [place]am [place] [facility] [place]ication: CHEST PAIN BP: / HR: 91 Rhythm: Sinus Technical Quality: Adequate MEASUREMENTS (Male / Female) Normal Values 2D ECHO LV Diastolic Diameter PLAX 2.6 cm 4.2 - 5.9 / 3.9 - 5.3 cm LV Systolic Diameter PLAX 1.1 cm LV Chamber Size 3.0 cm IVS Diastolic Thickness 1.3 cm 0.6 - 1.0 / 0.6 - 0.9 cm IVS Systolic Thickness 1.7 cm LVPW Diastolic Thickness 1.5 cm 0.6 - 1.0 / 0.6 - 0.9 cm LVPW Systolic Thickness 1.9 cm RV Chamber Size 4.6 cm LVOT Diameter 2.1 cm LV Ejection Fraction 2D Teich 88.7 % LV Ejection Fraction MOD 2C 65.3 % LV Ejection Fraction 2C AL 68.5 % LA Diameter 1.9 cm Aorta at Sinotubular Diameter 2.9 cm M-MODE LV Diastolic Diameter MM 2.4 cm 4.2 - 5.9 / 3.9 - 5.3 cm LV Systolic Diameter MM 1.4 cm LV Ejection Fraction MM Teich 74.7 % IVS Diastolic Thickness MM 1.2 cm 0.6 - 1.0 / 0.6 - 0.9 cm IVS Systolic Thickness MM 1.5 cm LVPW Diastolic Thickness MM 1.5 cm 0.6 - 1.0 / 0.6 - 0.9 cm LVPW Systolic Thickness MM 1.5 cm RV Diastolic Diameter MM 3.8 cm MV E Point Septal Separation 0.2 cm DOPPLER AV Peak Velocity 125.0 cm/s LVOT Peak Velocity 81.0 cm/s AV Area Cont Eq vti 2.6 cm squared AV Area Cont Eq pk 2.2 cm squared MV Area PHT 4.8 cm squared Mitral E to A Ratio 0.9 MV E' Velocity 35.0 cm/s Mitral E to MV E' Ratio 10.1 Mitral E to LV E' Lateral Ratio 11.8 Mitral E to LV E' Septal Ratio 8.9 TR Peak Velocity 382.0 cm/s TR Peak Gradient 58.4 mmHg TR Mean Velocity 240.4 cm/s TR Mean Gradient 25.3 mmHg TR Velocity Time Integral 91.1 cm TV Peak E Velocity 71.0 cm/s Right Atrial Pressure 15.0 mmHg Pulmonary Artery Systolic Pressu 73.4 mmHg PV Peak Velocity 63.0 cm/s RV Acceleration Time 0.1 s RV Ejection Time 0.3 s RV AcT/ET 0.3 FINDINGS Left Ventricle Moderate concentric left ventricular hypertrophy.normal left ventricular size and , EF 60 %. Flattened interventricular septum.Grade I/IV diastolic dysfunction (abnormal relaxation filling pattern), normal to mildly elevated filling pressures. Right Ventricle Dilated right ventricle with this moderate to severe diffuse hypokinesia Right Atrium Moderately increased right atrial size. Left Atrium The left atrium is normal in size. Mitral Valve Structurally normal mitral valve without significant stenosis or prolapse. There is no mitral regurgitation. Aortic Valve No gross abnormalities noted Tricuspid Valve Moderate tricuspid valve regurgitation. Multiple regurgitant jets. Severe pulmonary hypertension with a peak pulmonary artery systolic pressure of 73 mmHg and a mean pressure of 53 mmHg Pulmonic Valve Mild pulmonary valve regurgitation. Pericardium Small pericardial effusion. Dilated inferior vena cava measuring 2.7 cm in diameter with no significant respiratory variation Aorta Normal ascending aorta dimension. CONCLUSIONS 1. Severe pulmonary hypertension with an estimated mean pulmonary artery pressure of 53 mmHg 2. Moderate concentric left ventricular hypertrophy with an ejection fraction of 60%. 3. Wall motion of normalities as mentioned above. 4. Grade 1 left ventricular diastolic dysfunction. 5. Moderately dilated right ventricle with moderate diffuse hypokinesia, features suggestive of cor pulmonale 6. Moderately dilated right atrium 7. Moderate tricuspid regurgitation with a mild pulmonic regurgitation 8. Small pericardial effusion Compared to the previous study from 10/15/2019, there is some worsening of the pulmonary hypertension Dr Kia Maldonado MD [facility] (Electronically Signed) Final Date: 03 November 2020 16:18 S
== END 2020-11-03 13:57 | disposition home or self-care (01) ==
PROVIDERS: PCP Pediatrics; Visit Provider Internal Medicine Cardiovascular Disease
DX: R07.9 Chest pain, unspecified (principal); I27.20 Pulmonary hypertension, unspecified; I31.3 Pericardial effusion (noninflammatory); I07.1 Rheumatic tricuspid insufficiency
CPT/HCPCS: 93306

== ENCOUNTER 2020-11-14 10:30 | Outpatient (CLI) | payer MEDICARE, MEDICAID, SELFPAY | END 2020-11-14 10:31 | disposition home or self-care (01) | LOC: WOUND 10:31 | PROVIDERS: PCP Pediatrics; Visit Provider Thoracic Surgery (Cardiothoracic Vascular Surgery) | DX: I73.01 Raynaud's syndrome with gangrene (principal); L98.492 Non-pressure chronic ulcer of skin of other sites with fat layer exposed | CPT/HCPCS: 11042; 97597 ==

== ENCOUNTER 2020-11-21 09:09 | Outpatient (CLI) | payer MEDICARE, MEDICAID, SELFPAY | END 2020-11-21 09:10 | disposition home or self-care (01) | LOC: HBO 09:12 | PROVIDERS: PCP Pediatrics; Visit Provider Thoracic Surgery (Cardiothoracic Vascular Surgery) | DX: I73.01 Raynaud's syndrome with gangrene (principal); L98.492 Non-pressure chronic ulcer of skin of other sites with fat layer exposed | CPT/HCPCS: 11042; 97597 ==

== ENCOUNTER 2020-11-29 13:59 | Outpatient (CLI) | payer MEDICARE, MEDICAID, SELFPAY | END 2020-11-29 14:00 | disposition home or self-care (01) | LOC: WOUND 14:00 | PROVIDERS: PCP Pediatrics; Visit Provider Thoracic Surgery (Cardiothoracic Vascular Surgery) | DX: L98.492 Non-pressure chronic ulcer of skin of other sites with fat layer exposed (principal) | CPT/HCPCS: 97597 ==

== ENCOUNTER 2020-12-05 14:45 | Outpatient (CLI) | payer MEDICARE, MEDICAID, SELFPAY | END 2020-12-05 14:46 | disposition home or self-care (01) | LOC: WOUND 14:46 | PROVIDERS: PCP Pediatrics; Visit Provider Thoracic Surgery (Cardiothoracic Vascular Surgery) | DX: I73.01 Raynaud's syndrome with gangrene (principal); L98.492 Non-pressure chronic ulcer of skin of other sites with fat layer exposed | CPT/HCPCS: 97597 ==

== ENCOUNTER 2020-12-20 10:02 | Outpatient (CLI) | payer MEDICARE, MEDICAID, SELFPAY | END 2020-12-20 10:03 | disposition home or self-care (01) | LOC: WOUND 10:03 | PROVIDERS: PCP Pediatrics; Visit Provider Thoracic Surgery (Cardiothoracic Vascular Surgery) | DX: Z09 Encounter for follow-up examination after completed treatment for conditions other than malignant neoplasm (principal) | CPT/HCPCS: 99212 ==

== ENCOUNTER → 2020-12-29 14:37 | Outpatient (BNVA) | payer MEDICARE, MEDICAID, SELFPAY | PROVIDERS: PCP Pediatrics; Visit Provider Internal Medicine Critical Care Medicine | DX: Z20.822 Contact with and (suspected) exposure to COVID-19 (principal) | CPT/HCPCS: 87635 ==

== ENCOUNTER 2021-01-02 09:07 | Outpatient (CLI) | payer MEDICARE, MEDICAID, SELFPAY ==
--- NOTE | 2021-01-02 13:29 | PFTS_ITS ---
Date of Study:01/02/21 Date of Dictation: 01/03/21 MECHANICS: Forced vital capacity (FVC) is normal Forced expiratory volume in one second (FEV1) is moderately reduced 71%. FEV1/FVC is reduced There is no significant response to bronchodilators. FLOW VOLUME LOOP: Sloping of expiratory limb suggestive of airway obstruction . LUNG VOLUMES: Total lung capacity (TLC) is normal. Residual volume (RV) is increased to 186% suggestive of moderate air trapping. DIFFUSING CAPACITY FOR CARBON MONOXIDE: Not measured . INTERPRETATION: The pulmonary function tests are consistent with moderate obstructive ventilatory defect with moderate air trapping on lung volumes. Gas transfer not measured. Correlate clinically. MTDD
== END 2021-01-02 09:08 | disposition home or self-care (01) ==
LOC: RT 09:16
PROVIDERS: PCP Pediatrics; Visit Provider Internal Medicine Critical Care Medicine
DX: J44.9 Chronic obstructive pulmonary disease, unspecified (principal)
CPT/HCPCS: 94060; 94726; 94729; J7611

== ENCOUNTER → 2021-01-04 14:31 | Outpatient (BNVA) | payer MEDICARE, MEDICAID, SELFPAY | PROVIDERS: PCP Pediatrics; Visit Provider Internal Medicine | DX: I73.00 Raynaud's syndrome without gangrene (principal); R76.8 Other specified abnormal immunological findings in serum; I73.9 Peripheral vascular disease, unspecified; L98.499 Non-pressure chronic ulcer of skin of other sites with unspecified severity; Z79.899 Other long term (current) drug therapy; J44.9 Chronic obstructive pulmonary disease, unspecified; F17.210 Nicotine dependence, cigarettes, uncomplicated | CPT/HCPCS: 81001; 81003; 99214 ==

== ENCOUNTER → 2021-03-01 17:02 | Outpatient (BNVA) | payer MEDICARE, MEDICAID, SELFPAY | PROVIDERS: PCP Family Medicine; Visit Provider Emergency Medicine | DX: Z20.822 Contact with and (suspected) exposure to COVID-19 (principal) | CPT/HCPCS: 87635 ==

== ENCOUNTER 2021-03-07 07:34 | Day surgery (SDC) | payer MEDICARE, MEDICAID, SELFPAY ==
[2021-03-07] VITALS (15 sets, daily range): BP systolic 82–150; BP diastolic 53–112; PULSE 73–99; RESP 14–33; TEMP 36.6; O2SAT 84–99; BMI 24.0
--- NOTE | 2021-03-07 07:47 | XACV_ITS ---
Ht: 180 cm Wt: 78 kg BSA: 1.98 m2 Gender: Female : 1975 Exam Priority: Routine Procedure(s): Procedure Description: Diagnostic procedure Procedure Description: Right Heart Catheterization Procedure Description: O2 saturation Diagnostic Cath Status: Elective Diagnostic Findings * Patient's echocardiogram revealed severe pulmonary hypertension. Right heart catheterization was recommended by the pulmonary service to better evaluate the right-sided hemodynamics. Patient was brought to the cardiac catheterization lab. The procedure was performed to the right basilic vein. We used a [place]oya MON' catheter. Findings are as follows. * The mean right atrial pressure was 25 mmHg. The right ventricular pressure was 120/7. Pulmonary artery pressure was 120/57 with a mean of 80. Pulmonary capillary wedge pressure was 21. The cardiac output by Rubin's was 2 with an index of 1. * Blood samples were drawn from the mid right atrium, right ventricle, pulmonary artery. The O2 saturations were 48, 46 and 46 respectively. Arterial oxygen saturation by the finger oximetry was 89.. Conclusions 1. Severe pulmonary hypertension with a PA pressure of 122/57 and a mean of 80 mmHg. Pulmonary capillary wedge pressure was 21 mmHg. Diagnostic RX Recommendation: medical therapy and/or counseling Pressures Phase:Rest RV : 120 / 7 / 33 @ 8:07:00 AM PA : 118 / 56 ( 79 ) @ 8:01:00 AM 120 / 57 ( 80 ) @ 8:03:00 AM RA : a wave = 29 v wave = 27 mean = 25 @ 8:09:00 AM PCW : a wave = 23 v wave = 24 mean = 21 @ 8:02:00 AM O2 Content Phase:Rest PA : O2 Content O2: 45.5 @ 8:03:00 AM Saturations Phase:Rest AO : 89 @ 8:01:00 AM RA : 48 @ 8:07:00 AM RV : 46 @ 4:47:00 AM PA : 46 @ 8:03:00 AM Cardiac Output Phase:Rest Rubin : 2 @ 9:50:51 AM Rubin Cardiac Index: 1 @ 9:50:51 AM Flow Phase:Rest Qp : 2 @ 9:50:51 AM Qs : 3 @ 9:50:51 AM Clinical Evaluation EBL: 5mL-10mL Procedural Details Procedure Consent Obtained. Pre-Procedure Time Out. Identified patient by full name and date of as verbalized by the patient/guarantor. Does the consent match the physician's order: Yes. Accurate & Complete Informed Consent: Yes. Inpatient/Outpatient History & Physical on Chart: Yes. If H&P is completed, is and addenduem needed: Yes; If yes, is the addendum complete: Yes. Visualize and Verify Site with Patient/Guarantor: N/A. Relevant Radiology Images available: Yes. Pre-op teaching completed and patient verbalized understanding. The risks, benefits, and alternatives of sedation and/or procedure were discussed by physician. The patient agrees to continue. Procedure started. PERRLA. Strong, equal hand core filer bilaterally. Lungs clear x 5 lobes. IV Site on Arrival: 20 gauge in the right anticubital. IV Site on Arrival: 20 gauge in the left anticubital. Pre Procedural Pulses: bilateral dorsalis pedis was Doppled. Pre Procedural Pulses: bilateral posterior tibial was Doppled. Pre Procedural Pulses: bilateral radial was 3+. right brachial was prepped with chloroprep then draped in the usual sterile fashion. Physician notified. Baseline sample Acquired. HR: 102 BPM. Patient's family unavailable. Physician arrived. Physician scrubbed in. Immediate Pre-Procedure Time Out. Correct Patient: Yes; Correct Procedure: Yes; Correct Site: Yes; Correct Patient Position: Yes; Correct Supplies: Yes; Dried Flammable Prep: Yes; Blood Products Available: N/A;. Lidocaine 1% infiltrated to the right brachial. sheath wire inserted through the IV catheter. catheter removed OTW. [place] MON catheter inserted. Oximetry samples were obtained. Normal venous range: 60-85%. Normal arterial range: 95-100%. Pressure measurements obtained. Respiratory arrived to run O2 sats. [place] out. Physician scrubbed out. A Manual Compression was unsuccessful obtaining hemostatsis at the Right Brachial Vein insertion site. Post Procedure: Pulses reassessed and unchanged. PERRLA. Strong, equal hand core filer bilaterally. No VTE prophylaxis required. Total IV fluids: 50 mL. Complications: None. Estimated blood loss: 5mL-10mL. Procedure completed. Vital chart was stopped. Patient transferred by wheelchair to CPRU. Access Site Site: Right Brachial Vein Sheath Size: 6 Fr Hemostasis Method: Manual Compression Hemostasis Success: Unsuccessful Procedure Medications Start: 8:46 AM Stop: 8:46 AM Medication: Versed 1 mg and Fentanyl 25 mcg Amount: 1 Route: I.V. Start: 8:50 AM Stop: 8:50 AM Medication: Versed Amount: 1 mg Route: I.V. Start: 8:56 AM Stop: 8:56 AM Medication: Fentanyl Amount: 25 mcg Route: I.V. I, the attending physician, have reviewed and verified all procedure medications. Yes, all medications given per verbal order History/Risk Factors Hypertension: Yes Dyslipidemia: No Peripheral Arterial Disease (PAD): No Myocardial Infarction (FL): No Obesity: No Renal Disease: No Tobacco Use: Current/Recent(w/in 1 year) Prior Interventions PCI: No CABG: No Valve Surgery: No Report Signatures Finalized by Dr Kia Maldonado MD [facility] on 03/07/2021 08:23 PM
--- NOTE | 2021-03-07 08:16 | P.HPUD_ITS ---
Surgery/Procedure H&P Update DATE OF PROCEDURE: March 07, 2021 DATE H&P PERFORMED: 03/07/21 H&P UPDATE INFORMATION: I have reviewed H&P completed within last 30 days, I have examined patient prior to procedure and [place] [facility] [place] indicated PREOP DIAGNOSIS: Pulmonary hypertension PRIMARY INDICATION FOR PROCEDURE: Severe pulmonary hypertension by echocardiogram PLANNED PROCEDURE: Operation Date: 03/07/21 08:30 Proposed Procedures p right Cardiac Catheterization 23410 I27.20(Right) - Kia Maldonado MD PATIENT REASSESSED PRIOR TO SEDATION, WITH NO CHANGE NOTED: Yes PHYSICAL EXAM: alert, oriented x 3, clear to auscultation bilaterally and regular rate & rhythm AIRWAY EVAL/ANESTHESIA PLAN: normal airway, see other exam findings, ASA III, Monitored Anesthesia, Local Anesthesia, Risks, benefits & alternatives of sedation and/or procedure discussed and Patient agrees to continue as planned
--- NOTE | 2021-03-07 08:23 | PM.HP ---
Providers/Chief Complaint Admitting Physician: DR ABI Maldonado Primary Care Provider: Tena Castorena MD Chief Complaint: [facility] History of Present Illness Sharon Martinez is a 45 year old female with a history of severe pulmonary hypertension, thromboangiitis obliterans, Raynaud's disease, ulcerations of the fingertips, he is being evaluated by the pulmonary service. A right heart catheterization was recommended to better evaluate the pulmonary hemodynamics. Patient has a history of smoking abuse and methamphetamine abuse. She also was found to have a pulmonary nodule by CT scan recently. She is mainly complaining of shortness of breath with activities. Denies any orthopnea or PND. No fever, chills or cough. Couple of weeks ago, she had exposure to Covid. She was tested negative last Friday. Denies any other specific complaints at this point. Review of Systems Narrative: CONSTITUTIONAL: No fever or chills. EYES: No blurring of vision or other visual disturbances lately. ENT: No hoarseness of voice, auditory disturbances or sore throat. CARDIOVASCULAR: As mentioned above. RESPIRATORY: No significant cough. GASTROINTESTINAL: No hematemesis or melena. GENITOURINARY: No dysuria or hematuria. INTEGUMENTARY: No skin rashes or history of skin cancer. NEURO: No transient ischemic attacks or amaurosis. PSYCHIATRIC: No history of psychosis or major depression. HEMATOLOGIC: No bleeding disorders or significant anemia. ENDOCRINE: No history of polyuria or polydipsia. MUSCULOSKELETAL: Has pain at the fingertips. Chronic ulcerations which are currently healed ALLERGY/IMMUNOLOGY: As mentioned above. Medications/Allergies Home Medications Medication Instructions Recorded Confirmed Last Taken Type albuterol sulfate 90 mcg/actuation 1 inh INHALATION QID PRN #8.5 g 12/01/20 03/07/21 03/06/21 22:00 Rx aerosol inhaler fluoxetine 40 mg capsule 40 mg PO DAILY 12/18/20 03/07/21 03/06/21 09:00 History furosemide 20 mg tablet 20 mg PO DAILY 30 Days #30 tab 12/18/20 03/07/21 03/06/21 09:00 Rx gabapentin 800 mg tablet 800 mg PO BID 12/18/20 03/07/21 03/06/21 22:00 History zonisamide 100 mg capsule 100 mg PO BID 12/18/20 03/07/21 03/06/21 22:00 History umeclidinium 62.5 mcg-vilanterol 1 inh INHALATION DAILY 30 Days #60 01/09/21 03/07/21 03/06/21 09:00 Rx 25 mcg/actuation powdr for ea inhalation lidocaine-prilocaine 2.5 %-2.5 % 1 g TOPICAL .every 12 hours PRN 01/17/21 03/07/21 03/06/21 22:00 Rx topical cream #30 g pentoxifylline 400 mg 400 mg PO TID #90 tab 01/22/21 03/07/21 03/06/21 22:00 Rx tablet,extended release potassium chloride 10 mEq 10 meq PO DAILY #30 tab 01/22/21 03/07/21 03/06/21 09:00 Rx tablet,extended release(part/cryst) losartan 25 mg tablet 25 mg PO DAILY 30 Days #30 tab 01/31/21 03/07/21 03/06/21 09:00 Rx nifedipine 90 mg tablet,extended 90 mg PO DAILY #90 tab 01/31/21 03/07/21 03/06/21 09:00 Rx release 24 hr Allergies Allergy/AdvReac Type Severity Reaction Status Date / Time No Known Allergies Allergy Verified 03/07/21 08:36 PFSH Acute PFSH: Medical History Activity of daily living alteration Atypical chest pain TERRELL (dyspnea on exertion) Essential hypertension Incomplete right bundle branch block Peripheral neuropathy Pulmonary hypertension Raynauds disease Smoker Smoking addiction Ulceration localized to fingertip Surgical History Hx laparoscopic cholecystectomy Hx of tubal ligation S/P cholecystectomy Family History Father Hypertension CAD (coronary artery disease) Grandmother Hyperlipidemia maternal Breast cancer maternal, onset age unknown Cervical cancer maternal, onset age unknown Family/Other Thyroid condition paternal cousin Brother Pancreatic cancer Grandfather Colon cancer maternal, 50's Denies family history of Ovarian cancer Diabetes Clotting disorder Anesthesia complication Bleeding disorder Uterine cancer Stroke Social History Smoking and tobacco status: current some day smoker cigarettes Years cigarettes smoked: 30 [ Other cigarette details: Hx of 1 PPD x 30 Years ] Second hand smoke exposure: Yes Smoking risk assessment/counseling performed?: Yes Alcohol intake: current Alcohol intake frequency: holidays/special occasions only Alcohol type: hard liquor Counseling given: No Counseling given: Yes Lives independently: Yes Household members: none Marital status: Current occupational status: disabled History of recent travel: No Current gender identity: Female Female Reproductive History: Para: 2 Physical Exam Narrative: EXAM NARRATIVE: GENERAL: The patient is alert and oriented times three. Not in any acute distress. HEENT: No significant pallor, icterus or lymphadenopathy.Oral cavity: There are no mucous membrane lesions. NECK: Trachea appears to be central. No masses noted. No JVD or thyromegaly appreciated. RESPIRATORY: Chest is symmetrical. No intercostals muscle retraction or any accessory muscle activation. There is no chest wall tenderness. Breath sounds are heard bilaterally. No rales or rhonchi heard. No evidence of any consolidation. BREASTS: Deferred. HEART: The heart sounds are normal. No S3 or S4. Short systolic murmur in the left sternal border. No diastolic murmurs.. No pericardial rub ABDOMEN: No vessel pulsations or distention. No tenderness. No organomegaly appreciated. Bowel sounds are normally heard. : Deferred. RECTAL: Deferred. LYMPHATIC: No lymphadenopathy noted in the neck or groin. EXTREMITIES: No edema or cyanosis. Patient has some peripheral cyanosis and ulceration of the fingertips, chronic. MUSCULOSKELETAL: No acute joint deformities or swelling SKIN: There are no significant rashes or ecchymosis NEUROPSYCHIATRIC: The patient is alert and oriented x3. Appears to be in a good mood. No tremors or rigidity noted. Data : 03/07/21 08:10 03/07/21 08:10 A&P Assessment and plan (1) Pulmonary hypertension: To further better evaluate the pulmonary hemodynamics, a right heart catheterization was recommended. The risk of bleeding, hematoma, vascular injury, myocardial infarction, CVA, renal failure and other concomitant complications were explained in detail. Patient understood this well and consented to proceed Status: Acute (2) Emphysema lung: Continue on the current treatment measures. Status: Acute Qualifiers: Emphysema type: unspecified Qualified Code(s): J43.9 - Emphysema, unspecified (3) Lung nodule: Follow-up evaluation management as per the pulmonology Status: Acute (4) ANAY positive: Patient is being followed by rheumatology Status: Acute Additional A&P Information Based on the results of the above test, further recommendations will be made. Attestations Medical Necessity Statement*: Patient requires continued hospital stay for close monitoring and further management Coding Level of Care Code Acute [employer] Developer for [facility] Fwd Diagnoses Pulmonary hypertension I27.20 Emphysema lung J43.9 Emphysema type: unspecified Lung nodule R91.1 ANAY positive R76.8
[2021-03-07 08:37] LABS: Basophils # 0.1 10^3/uL (0.0-0.1); Eosinophils # 0.2 10^3/uL (0.0-0.8); Eosinophils % 2.9 %; Hematocrit 45.7 % (37.0-47.0); Hemoglobin 15.1 g/dL (11.5-15.3); Lymphocytes # 2.2 10^3/uL (0.8-4.8); Lymphocytes % 35.1 %; Mean Corpuscular Hemoglobin 30.8 pg (28.0-34.0); Mean Corpuscular Volume 93.1 fL (81-99); Mean Platelet Volume 12.4 fL (7.4-10.4); Monocytes # 0.5 10^3/uL (0.2-0.9); Monocytes % 7.7 %; Neutrophils # 3.33 10^3/uL (1.8-7.7); Nucleated Red Blood Cells % 0 %; Platelet Count 131 10^3/cmm (130-400); Red Blood Count 4.91 10^6/uL (4.1-5.3); Red Cell Distribution Width 14.7 % (12.1-15.1); White Blood Count 6.3 10^3/uL (4.0-10.0)
[2021-03-07 09:26] LABS: Anion Gap 13.7 (5-19); Blood Urea Nitrogen 25 mg/dL (6-20); Calcium 8.7 mg/dL (8.5-10.5); Carbon Dioxide 24 mmol/L (22-29); Chloride 103 mmol/L (98-107); Glomerular Filtration Rate 89.7 mL/min (90-130); Glucose 91 mg/dL (65-115); Osmolality Calculated 288 mOsm/kg (285-295); Potassium 3.7 mmol/L (3.5-5.1); Sodium 137 mmol/L (136-145)
[2021-03-07 09:30] LABS: ABG PH Result 7.38 (7.35-7.45); Alveolar-Arterial Oxygen Gradi 9.6 mmHg (5-10); Arterial Blood Gas Hematocrit 43.5 % (37-47); Blood Gas Operator Identificat GD; Blood Gas Sample Type Arterial; Carboxyhemoglobin 1.8 %THgb (0.4-20.1); HCO3 ABG 22.9 mmol/L (22-26); HGB O2 Sat 46.5 % (95-100); Methemoglobin 0.4 % (0.4-1.5); Oxygen Saturation ABG 47.5; Potassium Level - ABG 3.1 mmol/L (3.5-5.0); Total Hemoglobin 14.2 g/dL (12-16)
[2021-03-07 09:32] LABS: ABG PCO2 43.9 mmHg (35-45); ABG PH Result 7.37 (7.35-7.45); Base Excess ABG -0.2 mmol/L (-2.0-2.0); Blood Gas Operator Identificat GD; Blood Gas Sample Type Not specified; Carboxyhemoglobin 1.9 %THgb (0.4-20.1); HCO3 ABG 25.3 mmol/L (22-26); HGB O2 Sat 44.5 % (95-100); Ionized Calcium Level - ABG 1.1 mmol/L (1.1-1.4); Methemoglobin 0.3 % (0.4-1.5); Oxygen Saturation ABG 45.5; PO2 ABG 27.6 mmHg (80.0-100.0); Potassium Level - ABG 3.6 mmol/L (3.5-5.0); Total Hemoglobin 14.4 g/dL (12-16)
[2021-03-07 09:35] LABS: ABG PCO2 42.1 mmHg (35-45); ABG PH Result 7.37 (7.35-7.45); Alveolar-Arterial Oxygen Gradi 9.1 mmHg (5-10); Arterial Blood Gas Hematocrit 46.8 % (37-47); Base Excess ABG -1.2 mmol/L (-2.0-2.0); Blood Gas Operator Identificat GD; Blood Gas Sample Type Arterial; Carboxyhemoglobin 1.8 %THgb (0.4-20.1); HCO3 ABG 24.2 mmol/L (22-26); HGB O2 Sat 47.4 % (95-100); Ionized Calcium Level - ABG 1.1 mmol/L (1.1-1.4); Methemoglobin 0.3 % (0.4-1.5); Oxygen Saturation ABG 48.4; PO2 ABG 29.3 mmHg (80.0-100.0); Potassium Level - ABG 3.3 mmol/L (3.5-5.0); Total Hemoglobin 15.3 g/dL (12-16)
[2021-03-07 09:38] LABS: ABG PCO2 42.4 mmHg (35-45); ABG PH Result 7.38 (7.35-7.45); Arterial Blood Gas Hematocrit 43.7 % (37-47); Blood Gas Operator Identificat GD; Blood Gas Sample Type Not specified; HCO3 ABG 25.3 mmol/L (22-26); Ionized Calcium Level - ABG 1.1 mmol/L (1.1-1.4); Methemoglobin 0.7 % (0.4-1.5); Oxygen Saturation ABG 46.2; PO2 ABG 28.3 mmHg (80.0-100.0); Total Hemoglobin 14.3 g/dL (12-16)
[2021-03-07 09:40] LABS: ABG PCO2 43.9 mmHg (35-45); ABG PH Result 7.38 (7.35-7.45); Arterial Blood Gas Hematocrit 44.6 % (37-47); Base Excess ABG 0.2 mmol/L (-2.0-2.0); Blood Gas Operator Identificat GD; Blood Gas Sample Type Not specified; Carboxyhemoglobin 1.8 %THgb (0.4-20.1); HCO3 ABG 25.8 mmol/L (22-26); HGB O2 Sat 45.1 % (95-100); Ionized Calcium Level - ABG 1.1 mmol/L (1.1-1.4); Methemoglobin 0.3 % (0.4-1.5); Oxygen Saturation ABG 46.1; PO2 ABG 28.6 mmHg (80.0-100.0); Potassium Level - ABG 3.7 mmol/L (3.5-5.0); Total Hemoglobin 14.6 g/dL (12-16)
== END 2021-03-07 13:20 | disposition home or self-care (01) ==
PROVIDERS: PCP Family Medicine; Visit Provider Internal Medicine Cardiovascular Disease
DX: I27.20 Pulmonary hypertension, unspecified (principal); J43.9 Emphysema, unspecified; R91.1 Solitary pulmonary nodule; R76.8 Other specified abnormal immunological findings in serum; I10 Essential (primary) hypertension; F17.210 Nicotine dependence, cigarettes, uncomplicated; Z82.49 Family history of ischemic heart disease and other diseases of the circulatory system; Z80.3 Family history of malignant neoplasm of breast
CPT/HCPCS: 36415; 80048; 80051; 82330; 82805; 85025; 93451; C1751; C1769; C1894; J1644; J2250; J3010; J7030

== ENCOUNTER 2021-04-18 11:44 | Outpatient (CLI) | payer MEDICARE, MEDICAID, SELFPAY ==
--- NOTE | 2021-04-18 11:00 | CT_ITS ---
WS: [id number] CT CHEST WITHOUT INTRAVENOUS CONTRAST HISTORY: Pulmonary nodule TECHNIQUE: Contiguous 5 mm axial imaging performed on the thorax. Coronal and sagittal reformats are submitted. All CT scans at [facility] use at least one of these dose optimization techniques: automated exposure control; mA and/or kV adjustment per patient size (includes targeted exams where dose is matched to clinical indication); or iterative reconstruction. CONTRAST: None DLP: 750.93 mGycm COMPARISON: 10/16/2020 Lungs and central airway: Stable 5 mm noncalcified pulmonary nodule in the RIGHT lower lobe. Developm ent of mild diffuse haziness and edema. Increasing areas of consolidation at the RIGHT lung base. Pleura: Development of a small bilateral pleural effusions, RIGHT greater than LEFT. Heart and pericardium: There is a very large pericardial effusion which has developed since 10/16/2020. Diameter of the effusion measures up to 2.4 cm. Marked enlargement of the RIGHT heart chambers with RIGHT heart strain. Mediastinum and astird: Increased fluid in the pericardial recesses and small mediastinal and hilar lym ph nodes. Vessels: Normal size thoracic aorta. Dilated pulmonary artery. Chest wall and lower neck: Mild diffuse soft tissue anasarca is new. There are a few small benign-lauryn earing lymph nodes in the axilla. Upper abdomen: Prior cholecystectomy. Mild anasarca in the soft tissues in the upper abdomen. Osseous structures: No destructive bone lesions. CT/CT chest wo con [id number] IMPRESSION: 1. No increase in size of the RIGHT lower lobe 5 mm pulmonary nodule since 10/16. Recommend 12 month follow-up to document continued stability. 2. Interval development of a large circumferential pericardial effusion with i ncreasing RIGHT heart size, RIGHT heart strain and mild pulmonary edema. 3. New small bilateral pleural effusions, RIGHT greater than LEFT. 4. Pulmonary hypertension. Notified Benji Reyes MD at 04/18/2021 1:21 PM.
== END 2021-04-18 11:45 | disposition home or self-care (01) ==
PROVIDERS: PCP Family Medicine; Visit Provider Internal Medicine Critical Care Medicine
DX: R91.1 Solitary pulmonary nodule (principal); I27.20 Pulmonary hypertension, unspecified; J90 Pleural effusion, not elsewhere classified; I31.3 Pericardial effusion (noninflammatory)
CPT/HCPCS: 71250

== ENCOUNTER → 2021-05-29 12:03 | Outpatient (BNVA) | payer MEDICARE, MEDICAID, SELFPAY | PROVIDERS: PCP Family Medicine; Visit Provider Nurse Practitioner | DX: I10 Essential (primary) hypertension (principal); R79.89 Other specified abnormal findings of blood chemistry | CPT/HCPCS: 80048; 84443 ==

== ENCOUNTER → 2021-06-12 09:46 | Outpatient (BNVA) | payer MEDICARE, MEDICAID, SELFPAY | PROVIDERS: PCP Family Medicine; Visit Provider Internal Medicine | DX: I73.1 Thromboangiitis obliterans [Buerger's disease] (principal); I73.00 Raynaud's syndrome without gangrene; R76.8 Other specified abnormal immunological findings in serum; I10 Essential (primary) hypertension; I27.20 Pulmonary hypertension, unspecified; R91.1 Solitary pulmonary nodule; J44.9 Chronic obstructive pulmonary disease, unspecified; R07.89 Other chest pain; F17.210 Nicotine dependence, cigarettes, uncomplicated | CPT/HCPCS: 99214 ==

== ENCOUNTER 2021-06-30 23:06 | Emergency (ER) | payer MEDICARE, MEDICAID, SELFPAY ==
[2021-06-30 23:12] VITALS: BP 99/64; PULSE 90; RESP 20; TEMP 37.1; O2SAT 95; BMI 24.0
[2021-06-30] MEDS: oxymetazoline 0.05% Nasal Spray 15 mL 2 SPRAY NOSTRIL-B (23:24)
--- NOTE | 2021-06-30 23:35 | ED_ITS ---
HPI - Epistaxis General: Chief complaint: Epistaxis Stated complaint: Nose bleed wont stop Time Seen by Provider: 06/30/21 23:20 Source: patient Mode of arrival: ambulatory Limitations: no limitations History of Present Illness: HPI Narrative: 46-year-old female who states she has had a nosebleed from right nare over the last 2 to 3 hours. States she wears oxygen at home and gets dry naris she also is on Plavix and aspirin. States that she been able to get it to stop at times but continues to bleed. She does have a slight bleed at this time denies any worsening improving factors. She has had nosebleeds in the past but none the last of the fall Associated symptoms: Deny fever(s), headache(s) or vomiting Review of Systems Const: Denies: fever(s), chills, body aches or change in appetite Eyes: Denies: blurry vision or eye discomfort ENMT: Reports: epistaxis; Denies: throat pain or dental pain Card: Denies: chest pain Resp: Denies: dyspnea GI: Denies: abdominal pain, nausea, vomiting or diarrhea : Denies: dysuria Musc: Denies: neck pain or back pain Skin/Breast: Denies: rash Neuro: Denies: headache(s) Psych: Denies: depression Peng/Lymph: Denies: easy bruising All/Imm: Denies: urticaria PFSH ED PFSH: Medical History Activity of daily living alteration Atypical chest pain TERRELL (dyspnea on exertion) Essential hypertension Incomplete right bundle branch block Peripheral neuropathy Pulmonary hypertension Raynauds disease Smoker Smoking addiction Ulceration localized to fingertip Surgical History Hx laparoscopic cholecystectomy Hx of tubal ligation Family History Father Hypertension CAD (coronary artery disease) Grandmother Hyperlipidemia maternal Breast cancer maternal, onset age unknown Cervical cancer maternal, onset age unknown Family/Other Thyroid condition paternal cousin Brother Pancreatic cancer Grandfather Colon cancer maternal, 50's Denies family history of Ovarian cancer Diabetes Clotting disorder Anesthesia complication Bleeding disorder Uterine cancer Stroke Social History Smoking and tobacco status: current every day smoker cigarettes Years cigarettes smoked: 35 Second hand smoke exposure: No Smoking risk assessment/counseling performed?: Yes Alcohol intake: unknown Desire information about alcohol rehabilitation?: No Counseling given: No Desire information about substance/drug rehabilitation?: No Counseling given: Yes Adopted: No Caregiver/support person: No Lives independently: Yes Household members: family Housing: House Marital status: Single Number of children: 2 service: No History of recent travel: No Current gender identity: Female Female Reproductive History: Para: 2 Physical Exam Const: COMMON NORMALS: no acute distress, patient oriented x3 and healthy ap pearing HENMT: COMMON NORMALS: normocephalic and atraumatic HEAD & SCALP: normocephalic and atraumatic OTHER: Slight bleeding from right nare Eye: COMMON NORMALS: Equal, round and reactive pupils present and EOMs intact bilaterally PUPIL: Yes Equal, round and reactive pupils present Neck/C-Spine: COMMON NORMALS: full ROM and supple Chest: COMMONS NORMALS: normal inspection of the chest and normal palpation of entire chest wall Resp: COMMON NORMALS: normal respiratory effort, No retractions, No use of accessory muscles and clear to auscultation bilaterally AUSCULTATION: clear to auscultation bilaterally Cardio: COMMON NORMALS: regular rate, regular rhythm and No murmurs present (Cardio) RATE: regular rate RHYTHM: regular rhythm GI: COMMON NORMALS: Normal to inspection, nondistended, normoactive bowel sharri nds present, Soft to palpation, non-tender and no masses PALPATION: Yes Soft to palpation Extremity: COMMON NORMALS: normal to inspection and full ROM Neuro: COMMON NORMALS: patient oriented x3, moves all extremities and no focal motor deficits Psych: COMMON NORMALS: mental status grossly normal, Normal thought process present and cooperative THOUGHT PROCESS: Normal thought process present Skin: COMMON NORMALS: no rashes or lesions noted and no wounds GENERAL SKIN EXAM: no rashes or lesions noted Course Vital Signs: Vital signs: Vital Signs Temperature 98.7 F 06/30/21 23:12 Pulse Rate 90 06/30/21 23:12 Respiratory Rate 20 H 06/30/21 23:12 Blood Pressure 99/64 06/30/21 23:12 Pulse Oximetry 95 06/30/21 23:12 MDM - Epistaxis MDM Narrative: Medical decision making narrative: Patient presents with epistaxis since resolved. Resolved here with pressure monitored for another 30 minutes she had no rebleed she is stable for discharge is to follow-up with PCP and return if worsening she understands agrees to plan. Discharge Plan Discharge Patient Disposition: Home Clinical Impression: Epistaxis Condition: Stable Prescriptions: No Action albuterol sulfate 90 mcg/actuation HFA aerosol inhaler 1 inh inhalation QID PRN (Reason: shortness of breath or wheezing) Qty: 8.5 RF: 2 Anoro Ellipta 62.5-25 mcg/actuation blister with device 1 inh inhalation DAILY 30 Days Qty: 60 RF: 3 pentoxifylline 400 mg tablet extended release 400 mg PO TID Qty: 90 RF: 2 potassium chloride [Klor-Con M10] 10 mEq tablet,ER particles/crystals 10 meq PO DAILY Qty: 30 RF: 2 zonisamide [Zonegran] 100 mg capsule 100 mg PO BID RF: 0 nifedipine [Procardia XL] 90 mg tablet extended release 24hr 90 mg PO DAILY Qty: 90 RF: 3 losartan 25 mg tablet 25 mg PO DAILY 30 Days Qty: 30 RF: 5 Probiotic 3 billion cell capsule 3,000 mmu cells PO DAILY Qty: 30 RF: 0 lidocaine-prilocaine 2.5-2.5 % cream 1 g topical .every 12 hours PRN (Reason: pain) Qty: 30 RF: 2 gabapentin 800 mg tablet 800 mg PO BID Qty: 60 RF: 2 fluoxetine [Prozac] 40 mg capsule 40 mg PO DAILY Qty: 30 RF: 2 hydrocodone-acetaminophen 5-325 mg tablet 1 tab PO BID PRNRF: 0 furosemide 20 mg tablet See Rx Instructions .ROUTE .COMPLEX Qty: 30 RF: 2 Discharge Orders: Discharge ED (Routine); Ordered 07/01/21 Ordered By: Adia Fuentes Referrals: Tena Castorena MD [Primary Care Provider] - 1-3 days Discharge Diet: Advance as tolerated Discharge Activity: Resume usual activity Patient Instructions: Nosebleed (ED) Coding Level of Care Code ED Physical Biochemist for Chg Fwd Exam Comprehensive
== END 2021-07-01 00:29 | disposition home or self-care (01) ==
PROVIDERS: Emergency Provider Emergency Medicine; PCP Family Medicine
DX: R04.0 Epistaxis (principal); I10 Essential (primary) hypertension; F17.210 Nicotine dependence, cigarettes, uncomplicated
CPT/HCPCS: 99282

== ENCOUNTER → 2021-08-15 10:50 | Outpatient (BNVA) | payer MEDICARE, MEDICAID, SELFPAY | PROVIDERS: PCP Family Medicine; Visit Provider Nurse Practitioner Family | DX: Z20.822 Contact with and (suspected) exposure to COVID-19 (principal); R05.9 Cough, unspecified | CPT/HCPCS: 87400; 87635 ==

== ENCOUNTER → 2022-01-29 10:08 | Outpatient (BNVA) | payer MEDICARE, MEDICAID, SELFPAY | PROVIDERS: PCP Family Medicine; Visit Provider Internal Medicine Pulmonary Disease | DX: I27.21 Secondary pulmonary arterial hypertension (principal); I50.812 Chronic right heart failure; D50.9 Iron deficiency anemia, unspecified; E11.65 Type 2 diabetes mellitus with hyperglycemia | CPT/HCPCS: 82728; 84439; 84443; 85025 ==

== ENCOUNTER → 2022-05-01 14:06 | Outpatient (BNVA) | payer MEDICARE, MEDICAID, SELFPAY | PROVIDERS: PCP Family Medicine; Visit Provider Nurse Practitioner | DX: M54.6 Pain in thoracic spine (principal); M54.50 Low back pain, unspecified | CPT/HCPCS: 72072; 72100 ==

== ENCOUNTER 2022-06-17 06:57 | Outpatient (CLI) | payer MEDICARE, MEDICAID, SELFPAY ==
--- NOTE | 2022-06-17 07:00 | CT_ITS ---
WS: [id number] CT LUMBAR SPINE TECHNIQUE: Noncontrast CT of the lumbar spine with coronal and sagittal reformatted images. CLINICAL INFORMATION: S32.000A - Wedge compression fracture of unspecified lumb... COMPARISON: Radiograph May 01, 2022 DLP: 980.[address] scans at [facility] use at least one of these dose optimization techniques: automated e xposure control; mA and/or kV adjustment per patient size (includes targeted exams where dose is matc hed to clinical indication); or iterative reconstruction. FINDINGS: Compression fracture inferior endplate L3 with mild retropulsion of the posterior inferior cortex. Lo ss of approximately 30% vertebral body height. Mottled lucencies involving the L3 vertebral body micheal cent to the compression fracture. Recommend correlation with history of neoplasm. Bones could be furt her evaluated with bone scan. L1-L2: Normal. L2-L3: Normal. L3-L4: LEFT eccentric disc bulging with mild to moderate LEFT foraminal narrowing and slight compress ion of the exiting LEFT L3 nerve root. Narrowing of the LEFT subarticular recess. Spinal canal is pat ent. L4-L5: Mild annular bulging. Mild LEFT and no significant RIGHT foraminal narrowing. Slight narrowing of the LEFT subarticular recess. Mild facet arthropathy. L5-S1: Mild disc bulging with slight effacement of ventral thecal sac. Moderate RIGHT foraminal narro wing impinges the exiting RIGHT L5 nerve root. Mild LEFT foraminal narrowing. Slight contact of the t raversing RIGHT greater than LEFT S1 nerve roots. Moderate facet arthropathy. Visualized pelvic bony structures: Normal. Paravertebral soft tissues: Normal. RIGHT basilar atelectasis. CT/CT lumbar spine wo con* [id number] IMPRESSION: 1. Acute to subacute compression fracture inferior endplate L3 with loss of ap proximately 30% vertebral body height. Mild retropulsion of the posterior infer ior endplate. No significant central canal stenosis. 2. Mottled lucency along the L3 compression fracture may be due to bony remode ling however metastatic disease not entirely excluded. Recommend correlation wi history of neoplasm. Bones could be further evaluated with bone scan. 3. Mild to moderate LEFT L3-L4 and moderate RIGHT L5-S1 foraminal narrowing.
== END 2022-06-17 06:58 | disposition home or self-care (01) ==
LOC: RAD 06:57
PROVIDERS: PCP Family Medicine; Visit Provider Nurse Practitioner
DX: S32.000A Wedge compression fracture of unspecified lumbar vertebra, initial encounter for closed fracture (principal); X58.XXXA Exposure to other specified factors, initial encounter
CPT/HCPCS: 72131

== ENCOUNTER 2022-07-22 09:27 | Outpatient (CLI) | payer MEDICARE, MEDICAID, SELFPAY ==
--- NOTE | 2022-07-22 09:29 | NM_ITS ---
WS: [id number] NUCLEAR MEDICINE WHOLE BODY BONE SCAN HISTORY: Wedge-shaped fracture lumbar spine. Abnormal CT. COMPARISON: Lumbar spine CT 06/17/2022 TECHNIQUE: The patient was injected with 25.0 mCi of Technetium 99m HDP and serial whole-body scintig lito have been performed with anterior and posterior images. Large [id number] imaging over the spi ne. There is very mild uptake within the L3 vertebral body which corresponds to the compression fracture seen by recent CT. This is only mild increased uptake in the distribution along the inferior endplate suggesting fracture. There are no additional area of abnormal uptake to suggest metastatic bone dise ase. Normal appearance of the remaining vertebral bodies and the ribs. Normal soft tissue and renal u ptake. NM/NM bone scan whole body* [id number] IMPRESSION: 1. Mild uptake involving the inferior endplate of L3 corresponds to the findin gs on recent CT. 2. No additional evidence to suggest metastatic bone disease. If pain persists MRI of the lumbar spine with and without contrast may provide additional infor mation.
== END 2022-07-22 09:28 | disposition home or self-care (01) ==
LOC: RAD 09:28
PROVIDERS: PCP Nurse Practitioner; Visit Provider Nurse Practitioner
DX: R93.7 Abnormal findings on diagnostic imaging of other parts of musculoskeletal system (principal)
CPT/HCPCS: 78306; A9561

== ENCOUNTER → 2022-11-25 09:52 | Outpatient (BNVA) | payer MEDICARE, MEDICAID, SELFPAY | PROVIDERS: PCP Nurse Practitioner; Visit Provider Nurse Practitioner | DX: I10 Essential (primary) hypertension (principal); R79.89 Other specified abnormal findings of blood chemistry | CPT/HCPCS: 80053; 80061; 84439; 84443; 84481 ==

== ENCOUNTER 2022-12-21 11:01 | Emergency (ER) | payer MEDICARE, MEDICAID, SELFPAY ==
[2022-12-21 11:09] VITALS: BP 105/63; PULSE 68; RESP 18; TEMP 36.6; O2SAT 96
--- NOTE | 2022-12-21 11:16 | XRR_ITS ---
PROCEDURE INFORMATION: Exam: XR Right Ankle Exam date and time: 12/21/2022 11:19 AM Age: 47 years old Clinical indication: Pain; Ankle; Right; Additional info: Fall, pain, swelling, fall TECHNIQUE: Imaging protocol: Radiologic exam of the right ankle. Views: 3 or more views. COMPARISON: No relevant prior studies available. FINDINGS: Bones/joints: Ill-defined osseous densities noted adjacent to the distal margin of the lateral malleolus . Questionable loss of normal cortical margins at the lateral malleolus. Small calcaneal Achilles enthesophyte. Tibiotalar joint effusion. Soft tissues: Soft tissue swelling surrounding the ankle. XR/XR ankle RT min 3V* [id number] IMPRESSION: 1. Possible lateral ankle avulsion fracture in the region of the lateral malleolus. Recommend follow-up MRI. 2. Joint effusion and soft tissue swelling.
--- NOTE | 2022-12-21 11:16 | XRR_ITS ---
PROCEDURE INFORMATION: Exam: XR Right Foot Exam date and time: 12/21/2022 11:19 AM Age: 47 years old Clinical indication: Pain; Foot; Right; Additional info: Fall/swellling/pain TECHNIQUE: Imaging protocol: Radiologic exam of the right foot. Views: 3 or more views. COMPARISON: No relevant prior studies available. FINDINGS: Bones/joints: No acute fracture is seen. The joints are unremarkable. Degenerative changes along the posterior superior margin of the navicular. Soft tissues: Soft tissue swelling surrounding the ankle. Tibiotalar joint effusion. XR/XR foot RT min 3V* [id number] IMPRESSION: No evidence of acute fracture or dislocation in the foot.
--- NOTE | 2022-12-21 11:16 | W.ED.LOWEXIN ---
HPI - Extremity Injury (Lower) General: Chief Complaint: Fall Stated Complaint: right ankle injury Time Seen by Provider: 12/21/22 11:12 Source: patient Mode of arrival: wheelchair Limitations: no limitations History of Present Illness: Patient is a 47-year-old female presents to ED today for evaluation of right foot and ankle injury that she sustained yesterday after twisting it going down a flight of stairs. She states she is not able to bear weight on the extremity secondary to pain/discomfort. She denies any other injuries at this time. MD complaint: ankle injury and foot injury Onset (ago): day(s) (yesterday) Injury: Right: ankle and foot Type of Injury: inversion Place: home Severity: severe Relieving factors: immobilization Exacerbating factors: weight bearing, movement and palpation Context: other (twisting) Associated symptoms: Reports inability to bear weight Other symptoms: none Review of Systems Musc: Reports: extremity pain (R foot), joint pain (R ankle), joint swelling (R ankle) and limited range of motion Neuro: Denies: numbness in extremities, weakness in extremities or sensory changes PFSH ED PFSH: Medical History Activity of daily living alteration Atypical chest pain TERRELL (dyspnea on exertion) Incomplete right bundle branch block Peripheral neuropathy Pulmonary hypertension Raynauds disease Smoker Smoking addiction Ulceration localized to fingertip Surgical History Hx laparoscopic cholecystectomy Hx of tubal ligation Family History Father Hypertension CAD (coronary artery disease) Grandmother Hyperlipidemia maternal Breast cancer maternal, onset age unknown Cervical cancer maternal, onset age unknown Family/Other Thyroid condition paternal cousin Brother Pancreatic cancer Grandfather Colon cancer maternal, 50's Denies family history of Ovarian cancer Diabetes Clotting disorder Anesthesia complication Bleeding disorder Uterine cancer Stroke Social History Smoking and tobacco status: current every day smoker cigarettes Years cigarettes smoked: 35 Second hand smoke exposure: No Smoking risk assessment/counseling performed?: Yes Alcohol intake: unknown Desire information about alcohol rehabilitation?: No Counseling given: No Substance/Drug Use: unknown Desire information about substance/drug rehabilitation?: No Counseling given: Yes Adopted: No Caregiver/support person: No Lives independently: Yes Household members: family Housing: House Marital status: Single Number of children: 2 service: No Do you think of yourself as: Straight/Heterosexual Current gender identity: Female Female Reproductive History: Para: 2 Physical Exam Const: COMMON NORMALS: no acute distress, average body habitus, patient oriented x3, no limitations, healthy appearing, alert and well nourished Extremity: COMMON NORMALS: capillary refill normal GENERAL: Yes normal exam except as noted RIGHT LOWER EXTREMITY: Yes foot & digits Right ankle: Yes neurovascular exam (normal) and Yes foot & digits Right foot and digits: Yes neurovascular exam (normal) OTHER: TTP and swelling throughout R ankle joint mainly affecting lateral ankle; she has some extension of pain to proximal dorsal foot w/o notable swelling or bony deformity; DP/PT pulses, cap refill, and sensation are normal Neuro: COMMON NORMALS: patient oriented x3, moves all extremities, no focal motor deficits and no sensory deficits noted SENSORIUM/ORIENTATION: Yes alert GAIT: Yes Unable to assess gait Skin: NARRATIVE SKIN EXAM: very minimal abrasion R lateral foot Course Vital Signs: Vital signs: Vital Signs Temperature 97.8 F 12/21/22 11:09 Pulse Rate 68 12/21/22 11:09 Respiratory Rate 18 12/21/22 11:09 Blood Pressure 105/63 12/21/22 11:09 Pulse Oximetry 96 12/21/22 11:09 Oxygen Delivery Me thod Room Air 12/21/22 11:09 MDM - Extremity Injury (Lower) Medical Decision Making Personal interpretation of XRs shows an avulsion fracture from her distal fibula. Patient will be placed in a splint and given crutches and will have her follow-up with orthopedics. Discharge Plan Discharge Patient Disposition: Home Clinical Impression: Avulsion fracture of distal fibula Condition: Stable Prescriptions: New tramadol 50 mg tablet 50 mg PO Q6H PRN (Reason: pain) Qty: 14 0RF No Action potassium chloride [Klor-Con M10] 10 mEq tablet,ER particles/crystals 20 meq PO DAILY Rx Instructions: Take one tablet by mouth daily clopidogrel 75 mg tablet 75 mg PO DAILY pantoprazole 40 mg tablet,delayed release (DR/EC) 40 mg PO DAILY spironolactone 25 mg tablet 25 mg PO DAILY topiramate 50 mg tablet 50 mg PO BID Rx Instructions: Take 1 tablet by mouth two times a day. tadalafil (pulm. hypertension) [Adcirca] 20 mg tablet 20 mg PO DAILY PRN Rx Instructions: Take two tablets (40mg total) by mouth nightly administer approximately 30min before sexual activity; do not use more than 1 dose per 24hrs aspirin 81 mg capsule 162 mg PO DAILY ambrisentan 10 mg tablet 10 mg PO DAILY Patient Comments: [facility] in [place], [place] meclizine 25 mg tablet 25 mg PO BID Qty: 60 0RF aripiprazole [Abilify] 5 mg tablet 5 mg PO DAILY Qty: 30 2RF fluoxetine [Prozac] 40 mg capsule 40 mg PO DAILY Qty: 30 2RF Trelegy Ellipta 100-62.5-25 mcg blister with device 1 inh inhalation Q24H Qty: 28 2RF gabapentin 300 mg capsule See Rx Instructions PO DAILY Qty: 120 1RF Rx Instructions: 300mg AM and 900mg PM PO daily; Discharge Orders: Discharge ED (Routine); Ordered 12/21/22 Ordered By: Ninfa Merlos Referrals: Tova Ortiz, [facility] [Primary Care Provider] - Patient Instructions: Ankle Fracture (DC), Opioid Safety, Pain Management Activity Restrictions/Additional Instructions: As we discussed case management should reach out to you early this week to set you up with your follow-up orthopedic appointment. No weightbearing until told otherwise by orthopedics. You may ice and elevate the extremity to help with swelling. Coding Level of Care Code ED Heavy Cleaner for Miko Anderson
--- NOTE | 2022-12-23 09:16 | DCPLANNER ---
Addendum entered by Joelle Mccarty 12/25/22 14:13: Patient had a follow up appointment scheduled with ortho - patient did attend appointment. Original Note: lunch counter manager had message to schedule a follow up appointment for patient with ortho. lunch counter manager sent patients information to the front office staff at ortho. Patients information will be printed and reviewed. Clinic will call patient with appointment information.
== END 2022-12-21 12:07 | disposition home or self-care (01) ==
PROVIDERS: Emergency Provider Physician Assistant; PCP Nurse Practitioner
DX: S82.831A Other fracture of upper and lower end of right fibula, initial encounter for closed fracture (principal); X50.1XXA Overexertion from prolonged static or awkward postures, initial encounter; F17.210 Nicotine dependence, cigarettes, uncomplicated; Z79.02 Long term (current) use of antithrombotics/antiplatelets; Z79.82 Long term (current) use of aspirin
CPT/HCPCS: 29515; 73610; 73630; 99283; E0114

== ENCOUNTER → 2022-12-25 08:55 | Outpatient (BNVA) | payer MEDICARE, MEDICAID, SELFPAY | PROVIDERS: PCP Nurse Practitioner; Visit Provider Podiatrist Foot & Ankle Surgery | DX: S82.831A Other fracture of upper and lower end of right fibula, initial encounter for closed fracture (principal); W10.8XXA Fall (on) (from) other stairs and steps, initial encounter; S92.101A Unspecified fracture of right talus, initial encounter for closed fracture | CPT/HCPCS: 29515; 99203 ==

== ENCOUNTER → 2023-01-15 10:54 | Outpatient (BNVA) | payer MEDICARE, MEDICAID, SELFPAY | PROVIDERS: PCP Nurse Practitioner; Visit Provider Podiatrist Foot & Ankle Surgery | DX: S82.401D Unspecified fracture of shaft of right fibula, subsequent encounter for closed fracture with routine healing (principal); S92.101D Unspecified fracture of right talus, subsequent encounter for fracture with routine healing; W10.8XXD Fall (on) (from) other stairs and steps, subsequent encounter | CPT/HCPCS: 73610 ==

== ENCOUNTER 2023-01-15 11:44 | Outpatient (CLI) | payer MEDICARE, MEDICAID, SELFPAY | END 2023-01-15 11:45 | disposition home or self-care (01) | LOC: SPT 11:44 | PROVIDERS: PCP Nurse Practitioner; Visit Provider Podiatrist Foot & Ankle Surgery | DX: Z46.89 Encounter for fitting and adjustment of other specified devices (principal); S82.831D Other fracture of upper and lower end of right fibula, subsequent encounter for closed fracture with routine healing; X58.XXXD Exposure to other specified factors, subsequent encounter | CPT/HCPCS: 97760; 99213; L4361 ==

== ENCOUNTER → 2023-01-30 08:54 | Outpatient (BNVA) | payer MEDICARE, MEDICAID, SELFPAY | PROVIDERS: PCP Nurse Practitioner; Visit Provider Podiatrist Foot & Ankle Surgery | DX: S82.401D Unspecified fracture of shaft of right fibula, subsequent encounter for closed fracture with routine healing (principal); S92.101D Unspecified fracture of right talus, subsequent encounter for fracture with routine healing; X58.XXXD Exposure to other specified factors, subsequent encounter | CPT/HCPCS: 99213 ==

== ENCOUNTER → 2023-02-12 14:36 | Outpatient (BNVA) | payer MEDICARE, MEDICAID, SELFPAY | PROVIDERS: PCP Nurse Practitioner; Visit Provider Podiatrist Foot & Ankle Surgery | DX: S99.912A Unspecified injury of left ankle, initial encounter (principal); S93.402A Sprain of unspecified ligament of left ankle, initial encounter; W17.81XA Fall down embankment (hill), initial encounter | CPT/HCPCS: 73610; 99213 ==

== ENCOUNTER → 2023-03-25 15:20 | Outpatient (BNVA) | payer MEDICARE, MEDICAID, SELFPAY | PROVIDERS: PCP Nurse Practitioner; Visit Provider Nurse Practitioner | DX: F41.1 Generalized anxiety disorder (principal); J44.9 Chronic obstructive pulmonary disease, unspecified; R79.89 Other specified abnormal findings of blood chemistry | CPT/HCPCS: 80053; 80061; 84443; 85025 ==

== ENCOUNTER 2023-04-07 14:10 | Outpatient (CLI) | payer MEDICARE, MEDICAID, SELFPAY ==
--- NOTE | 2023-04-07 14:30 | CT_ITS ---
WS: [id number] CT CHEST TECHNIQUE: Noncontrast CT of the chest with coronal and sagittal reformatted images. CLINICAL INFORMATION: J44.9 - Chronic obstructive pulmonary disease, unspecified COMPARISON: CT 04/18/2021 DLP: 189.[address] scans at [facility] use at least one of these dose optimization techniques: automated e xposure control; mA and/or kV adjustment per patient size (includes targeted exams where dose is matc hed to clinical indication); or iterative reconstruction. FINDINGS: Advanced chronic emphysematous changes. No acute pulmonary infiltrates. Slight bibasilar atelectasis. No focal consolidation or pleural fluid. Noncalcified nodule RIGHT lower lobe posteriorly measuring 6 mm. This is stable since 04/18/2021. Normal caliber thoracic aorta. No mediastinal or hilar lymphadenopathy. No axillary lymphadenopathy. Small calcified granuloma RIGHT lower lobe. Tiny esophageal hiatal hernia. IMPRESSION: 1. Advanced chronic emphysematous changes. 2. Noncalcified nodule RIGHT lower lobe posterior medially measuring 6 mm unchanged since 2020. 3. Hazy atelectasis in the lung bases. 4. No other suspicious abnormalities
== END 2023-04-07 14:11 | disposition home or self-care (01) ==
LOC: RAD 14:11
PROVIDERS: PCP Nurse Practitioner; Visit Provider Nurse Practitioner
DX: J44.9 Chronic obstructive pulmonary disease, unspecified (principal); R91.1 Solitary pulmonary nodule; J98.11 Atelectasis
CPT/HCPCS: 71250

== ENCOUNTER → 2023-06-16 11:24 | Outpatient (BNVA) | payer MEDICARE, MEDICAID, SELFPAY | PROVIDERS: PCP Nurse Practitioner; Visit Provider Internal Medicine Pulmonary Disease | DX: I27.21 Secondary pulmonary arterial hypertension (principal); I27.20 Pulmonary hypertension, unspecified | CPT/HCPCS: 80048 ==

== ENCOUNTER → 2023-10-29 14:19 | Outpatient (BNVA) | payer MEDICARE, MEDICAID, SELFPAY | PROVIDERS: PCP Nurse Practitioner; Visit Provider Nurse Practitioner | DX: M54.50 Low back pain, unspecified (principal); M79.604 Pain in right leg; M16.11 Unilateral primary osteoarthritis, right hip | CPT/HCPCS: 73502 ==

== ENCOUNTER → 2023-11-11 11:40 | Outpatient (BNVA) | payer MEDICARE, MEDICAID, SELFPAY | PROVIDERS: PCP Nurse Practitioner; Visit Provider Nurse Practitioner | DX: F41.1 Generalized anxiety disorder (principal); E55.9 Vitamin D deficiency, unspecified; G62.9 Polyneuropathy, unspecified | CPT/HCPCS: 80053; 82306; 82607; 84443 ==

== ENCOUNTER 2023-11-18 15:46 | Outpatient (CLI) | payer MEDICARE, MEDICAID, SELFPAY ==
--- NOTE | 2023-11-18 16:00 | MR_ITS ---
WS: [id number] MRI LUMBAR SPINE NONCONTRAST TECHNIQUE: Sagittal T1, T2 and STIR imaging. Axial T1 and T2 imaging. CLINICAL INFORMATION: M54.50 - Low back pain, unspecified COMPARISON: CT lumbar 06/17/2022 FINDINGS: Counting performed from the craniocervical junction. L5 is transitional and partially sacra lized. Recommend plain film correlation prior to surgical intervention. This differs from the numberi ng convention used on the prior lumbar spine CT 06-17-2022 Reversal of the normal cervical lordosis on the cervical spine certified phlebotomy technician imaging. Disc space narrowing C5 -C6 and C6-C7. Small central protrusion at C6-7 with mild central canal stenosis. Chronic appearing a nterior wedging at C5 and C6. L1-L2: Mild facet arthropathy. Spinal canal and foramen are patent. L2-L3: Chronic compression inferior endplate L2 unchanged since the prior lumbar CT. This was conside red L3 on the prior dictation. This is unchanged in appearance. Mild disc bulging with mild to modera te central canal stenosis. Moderate facet arthropathy. LEFT foraminal protrusion with moderate LEFT f oraminal narrowing. Mild RIGHT foraminal narrowing. L3-L4: Mild annular bulging with slight effacement of the ventral thecal sac. Moderate facet arthropa thy with ligamentum flavum hypertrophy. Foramen are patent. L4-L5: Moderate narrowing of the thecal sac at this level due to prominent circumferential epidural f at. Moderate facet arthropathy ligamentum flavum hypertrophy. Mild disc bulge with osteophytic ridgin g. RIGHT foraminal protrusion with severe RIGHT foraminal narrowing and impingement on the exiting RI GHT L4 nerve root. Mild LEFT foraminal narrowing. L5-S1: L5 is transitional and sacralized. Spinal canal and foramen are patent at this level. Visualized pelvic bony structures: Normal. Paravertebral soft tissues: Normal. IMPRESSION: 1. Counting performed from the craniocervical junction. L5 is transitional and partially sacralize d. Recommend plain film correlation prior to surgical intervention. 2. Chronic compression inferior plate L2 unchanged since the prior CT. Note this is considered L3 on the prior CT. 3. Mild to moderate central canal stenosis L2-3 with a central disc protrusion. Moderate LEFT forami nal narrowing impinges the exiting LEFT L2 nerve root with a LEFT foraminal protrusion. 4. Moderate narrowing of the thecal sac L4-5 mainly due to prominent epidural fat with facet arthrop athy and ligamentum flavum hypertrophy. 5. Severe RIGHT L4-5 foraminal narrowing with a RIGHT foraminal protrusion. This impinges the exitin g RIGHT L4 nerve root.
== END 2023-11-18 15:47 | disposition home or self-care (01) ==
LOC: RAD 15:47
PROVIDERS: PCP Nurse Practitioner; Visit Provider Nurse Practitioner
DX: M54.50 Low back pain, unspecified (principal); M79.606 Pain in leg, unspecified; M48.061 Spinal stenosis, lumbar region without neurogenic claudication
CPT/HCPCS: 72148

== ENCOUNTER → 2024-03-02 15:12 | Outpatient (BNVA) | payer MEDICARE, MEDICAID, SELFPAY | PROVIDERS: PCP Nurse Practitioner; Visit Provider Nurse Practitioner | DX: F41.1 Generalized anxiety disorder (principal); E55.9 Vitamin D deficiency, unspecified; N18.30 Chronic kidney disease, stage 3 unspecified; M54.50 Low back pain, unspecified; M79.604 Pain in right leg; E53.8 Deficiency of other specified B group vitamins; G62.9 Polyneuropathy, unspecified | CPT/HCPCS: 80053; 82306; 82607; 85025 ==

== ENCOUNTER → 2024-07-28 14:52 | Outpatient (BNVA) | payer MEDICARE, MEDICAID, SELFPAY | PROVIDERS: PCP Nurse Practitioner; Visit Provider Clinical Nurse Specialist Adult Health | DX: N39.0 Urinary tract infection, site not specified (principal) | CPT/HCPCS: 81000; 87086 ==

== ENCOUNTER → 2024-08-10 10:14 | Outpatient (BNVA) | payer MEDICARE, MEDICAID, SELFPAY | PROVIDERS: PCP Nurse Practitioner; Visit Provider Clinical Nurse Specialist Adult Health | DX: A04.72 Enterocolitis due to Clostridium difficile, not specified as recurrent (principal) | CPT/HCPCS: 87046; 87493 ==

== ENCOUNTER → 2024-09-06 12:09 | Outpatient (BNVA) | payer MEDICARE, MEDICAID, SELFPAY | PROVIDERS: PCP Nurse Practitioner; Visit Provider Nurse Practitioner | DX: E53.8 Deficiency of other specified B group vitamins (principal); Z13.6 Encounter for screening for cardiovascular disorders | CPT/HCPCS: 80053; 80061; 82607; 85025 ==

== ENCOUNTER → 2025-06-21 14:52 | Outpatient (BNVA) | payer MEDICARE, MEDICAID, SELFPAY | PROVIDERS: PCP Nurse Practitioner; Visit Provider Nurse Practitioner | DX: N18.30 Chronic kidney disease, stage 3 unspecified (principal) | CPT/HCPCS: 80053; 85025 ==